=== PATIENT | male | born 1965 | race Caucasian/White ===

== ENCOUNTER 2021-09-01 09:52 | Emergency (ER) | payer BC, SELFPAY ==
[2021-09-01 09:55] VITALS: BP 121/74; PULSE 83; RESP 18; TEMP 36.4; O2SAT 100
--- NOTE | 2021-09-01 10:01 | ED.URI ---
HPI - URI/Sore Throat General Chief Complaint: Upper Respiratory Infection Stated Complaint: Cough,Body Aches Time Seen by Provider: 09/01/21 10:10 Source: patient, family, RN notes reviewed and old records reviewed Mode of arrival: ambulatory Limitations: no limitations History of Present Illness HPI Narrative: 56-year-old male presents to the [facility] with complaints of continued fatigue, cough and body aches for over a week, About 10 days. States last week he just really was not feeling well, lasted 3-4 days. States that he is feeling better but still having mild sx. Has a history of COPD and has had some shortness of breath. Denies fevers. Denies chest pain or abdominal pain. No nausea vomiting or diarrhea. Patient states today he is feeling a little better. Continues to have the cough, fatigue. Patient states he is COVID vaccinated Pertinent past history: COPD Onset (ago): day(s) (10) Related Data Home Medications Medication Instructions Recorded Confirmed albuterol sulfate [Ventolin HFA] 2 inh INHALATION DIRECTED 09/01/21 09/01/21 beclomethasone dipropionate [Qvar 40 mcg INHALATION DIRECTED 09/01/21 09/01/21 RediHaler] ixekizumab [Taltz Autoinjector] 1 mg SUBCUT DIRECTED 09/01/21 09/01/21 lisinopril 20 mg PO DAILY 09/01/21 09/01/21 Allergies Allergy/AdvReac Type Severity Reaction Status Date / Time No Known Allergies Allergy Unverified 09/01/21 09:55 Review of Systems Review of Systems: All systems reviewed & are unremarkable except as noted in HPI and below Constitutional: Constitutional: Reports as per HPI, Denies chills, Reports fatigue, Denies fever(s) and Denies headache(s) Eyes: Eyes: Reports no additional eye complaints ENT: Reports as per HPI, Denies vertigo, Denies dizziness, Denies headache(s), Denies nasal congestion and Denies sore throat Cardiovascular: Cardiovascular: Reports no additional cardiovascular complaints, Denies chest pain, Denies syncope, Denies rapid heart rate and Denies dyspnea Respiratory: Respiratory: Reports as per HPI, Denies chest congestion, Reports cough, Reports dyspnea and Denies wheezing Gastrointestinal: Gastrointestinal: Reports no additional gastrointestinal complaints, Denies abdominal pain, Denies diarrhea, Denies nausea and Denies vomiting Musculoskeletal: Musculoskeletal: Reports as per HPI, Denies back pain, Reports myalgias and Denies numbness Integumentary/Breasts: Skin/Breast: Reports system reviewed and no additional complaints, except as docu Neurologic: Reports system reviewed and no additional complaints, except as documented, Denies vertigo, Denies dizziness, Denies syncope, Denies headache(s), Denies focal weakness and Denies numbness Psychiatric: Psychiatric: Reports no additional psychiatric complaints Allergic/Immunologic: Allergic/Immunologic: Reports no additional allergic/immunologic complaints and Denies wheezing PMFSH Past Medical History Medical History (Updated 09/01/21 @ 10:21 by Patsy Hastings) COPD (chronic obstructive pulmonary disease) Hypertension Surgical History Surgical History (Updated 09/01/21 @ 10:18 by Patsy Hastings) H/O cervical spine surgery Social History Social History (Updated 09/01/21 @ 10:19 by Patsy Hastings) Smoking status: Current every day smoker Comments At the time of my signature, I reviewed and agree with the nursing past medical, surgical, social, and family history. There is no relevant family history pertinent to the patient complaint. Exam Const: General: cooperative, healthy appearing, no acute distress, well developed and alert Nutritional Appearance: well nourished and obese Orientation/consciousness: patient oriented x3 Limitations: no limitations HENMT: Head: normal to inspection Ears: external ears normal, TM's normal bilaterally and EAC's normal General nose exam: Normal external nose present Mouth: Yes lip normal and Yes moist mucous membranes Throat: uvula
== END 2021-09-01 10:35 | disposition home or self-care (01) ==
PROVIDERS: Emergency Provider Nurse Practitioner; PCP Physician Assistant
DX: J44.9 Chronic obstructive pulmonary disease, unspecified (principal); R53.83 Other fatigue; I10 Essential (primary) hypertension; F17.200 Nicotine dependence, unspecified, uncomplicated
CPT/HCPCS: 99213; G0463

== ENCOUNTER 2023-08-13 08:11 | Outpatient (CLI) | payer BC, SELFPAY ==
[2023-08-13 08:44] LABS: Basophils Absolute Auto 0.1 K/mm3 (0.0-0.1); Basophils Percent Auto 0.7 % (0.2-1.2); Eosinophils Absolute Auto 0.3 K/mm3 (0-0.3); Eosinophils Percent Auto 4.2 % (0-4.4); Hematocrit 51.6 % (42.0-52.0); Hemoglobin 16.6 g/dL (14.0-18.0); Immature Granulocyte Absolute 0.02 K/mm3 (0.00-0.031); Immature Granulocyte Percent A 0.3 % (0-0.5); Lymphocytes Absolute Auto 1.61 K/mm3 (0.9-3.2); Lymphocytes Percent Auto 21.2 % (18.3-44.2); Mean Corpuscular HGB Conc 32.2 g/dl (32-36); Mean Corpuscular Hemoglobin 31.1 pg (26-34); Mean Corpuscular Volume 96.6 fl (80-100); Mean Platelet Volume 9.7 fl (7.4-10.4); Monocytes Absolute Auto 0.6 K/mm3 (0.1-0.6); Monocytes Percent Auto 7.8 % (2.6-8.5); Neutrophils Percent Auto 65.8 % (45.5-73.1); Platelet Count Result 262 k/mm3 (150-375); Red Blood Count 5.34 M/mm3 (4.6-6.20); Red Cell Distribution Width 13.7 % (11.5-14.5); White Blood Count 7.6 K/mm3 (4.5-10.0)
[2023-08-13 08:55] LABS: Alanine Aminotransferase 17 U/L (6-50); Albumin Level 4.6 g/dL (3.5-5.1); Alkaline Phosphatase 84 U/L (38-126); Anion Gap 9 mmol/L (8-16); Aspartate Amino Transferase 20 U/L (17-59); Bilirubin,Total 0.9 mg/dL (0.2-1.3); Blood Urea Nitrogen 12 mg/dL (9-20); Calcium 9.3 mg/dL (8.4-10.2); Carbon Dioxide 29 mmol/L (22-30); Chloride 102 mmol/L (98-107); Estimated Glomerular Filt Rate > 60; Glucose 115 mg/dL (65-110); Potassium 4.6 mmol/L (3.4-5.0); Sodium 140 mmol/L (137-145)
== END 2023-08-13 08:12 | disposition home or self-care (01) ==
PROVIDERS: PCP Physician Assistant
DX: Z79.899 Other long term (current) drug therapy (principal)
CPT/HCPCS: 36415; 80053; 85025

== ENCOUNTER 2024-10-02 12:30 | Emergency (ER) | payer BC, SELFPAY ==
--- NOTE | ~2024-10-02 | XR_ITS ---
EXAMINATION: [id number] DATE: 10/02/2024 13:23 INDICATION: Firm mass at the anterior right distal femur TECHNIQUE: AP and lateral views of the right knee were obtained. COMPARISON: None. FINDINGS: Bone alignment is normal. No fracture. There is mild joint space narrowing the medial compartment and tiny marginal osteophytes along the patella and trochlea consistent with mild osteoarthritis. No rig ht knee joint effusion. There is a prominent cephalad directed exostosis with cortical and medullary continuity consistent with an osteochondroma. Arises from the medial side of the medial supracondylar region and is directed more posteriorly on the lateral projection. This could account for a medial s ided palpable abnormality but is unlikely to account for an anterior mass. There is however prominent soft tissue swelling with subcutaneous edema in the prepatellar soft tissues but also extending more cephalad anterior to the distal femur where there is anterior bulging of the skin surface. No eviden t homogeneous soft tissue density mass identified. IMPRESSION: 1. Mild medial and patellofemoral compartment osteoarthritis at the right knee. 2. Prominent medial supracondylar osteochondroma projecting cephalad and posteriorly. 3. Prominent nonspecific soft tissue swelling with subcutaneous edema along the anterior knee and dis vandana thigh which could be seen with cellulitis. Reviewed, dictated and finalized at location A. FOLIO DIRECTOR IMPRESSION: 1. Mild medial and patellofemoral compartment osteoarthritis at the right knee. 2. Prominent medial supracondylar osteochondroma projecting cephalad and youth support worker iorly. 3. Prominent nonspecific soft tissue swelling with subcutaneous edema along the anterior knee and distal thigh which could be seen with cellulitis.
[2024-10-02 12:44] VITALS: BP 120/69; PULSE 101; RESP 16; TEMP 36.7; O2SAT 97
--- NOTE | 2024-10-02 13:08 | ED_ITS ---
HPI - URI/Sore Throat General Chief Complaint: Unspecified Stated Complaint: cold,lump right leg Time Seen by Provider: 10/02/24 13:08 Source: patient Mode of arrival: ambulatory Limitations: no limitations History of Present Illness HPI Narrative: 59-year-old male presents with complaint of fatigue and generalized weakness for approximately 5 days. Patient reports bump to right thigh for approximately 1 week. All systems reviewed and negative except as noted above. Related Data Home Medications ?Medication ?Instructions ?Recorded ?Confirmed ?Last Taken ?Type albuterol sulfate 90 mcg/actuation 2 inh inhalation DIRECTED 09/01/21 10/02/24 Unknown History aerosol inhaler (Ventolin HFA) beclomethasone dipropionate 40 40 mcg inhalation DIRECTED 09/01/21 10/02/24 Unknown History mcg/actuation HFA breath activated aerosol (Qvar RediHaler) lisinopril 20 mg tablet 20 mg PO DAILY 10/02/24 10/02/24 Unknown History Allergies Allergy/AdvReac Type Severity Reaction Status Date / Time No Known Allergies Allergy Unverified 10/02/24 12:37 Review of Systems Review of Systems: CONSTITUTIONAL: Denies fever, chills, or sweats. Reports generalized weakness and fatigue. EYES: Denies visual changes, redness, or discharge. ENT: Denies rhinorrhea, congestion, sore throat, or otalgia. CARDIOVASCULAR: Denies chest pain, palpitations, or edema. RESPIRATORY: Denies cough or dyspnea. GASTROINTESTINAL: Denies abdominal pain, nausea, vomiting, or diarrhea. GENITOURINARY: Denies dysuria or hematuria. SKIN: Denies rash or itching. Reports bump to right thigh. MUSCULOSKELETAL: Denies back pain, joint pain, or myalgia. NEUROLOGIC: Denies headache, numbness, or weakness. PSYCHIATRIC: Denies anxiety or depression. All other systems reviewed are negative, except as documented in HPI. [facility] Past Medical History Medical History Hypertension COPD (chronic obstructive pulmonary disease) Surgical History Surgical History H/O cervical spine surgery Social History Social History Smoking status: Current every day smoker Comments At time of signature, agree with nursing past medical, surgical, social and family history. There is no relevant family history pertinent to the presenting complaint. Exam Narrative: GENERAL: This is a well-nourished, well-developed patient, in no apparent distress. HEAD: normocephalic, atraumatic. EYES: PERRL. Sclera clear/white. Vision is grossly intact. EARS: External ears normal NOSE: External nose normal NECK: Neck supple, non-tender without lymphadenopathy, masses or thyromegaly. CARDIOVASCULAR: Regular rate and rhythm without murmurs, gallops, or rubs. RESPIRATORY: Clear to auscultation. Breath sounds equal bilaterally. No wheezes, rales, or rhonchi. SKIN: warm, Dry, intact with no suspicious lesions or rash, good texture and turgor. NEURO: awake, alert, and oriented to person, place and time. There were no obvious focal neurologic abnormalities. EXTREMITIES: No joint tenderness, effusion, or edema noted. mass/lump to anterior aspect, distal femur approx. 8x7cm with erythema and warmth Course Course Level of Care: Express Care Visit Vital Signs Vital signs: Vital Signs Temperature 36.7 C 10/02/24 12:44 Pulse Rate 101 H 10/02/24 12:44 Respiratory Rate 16 10/02/24 12:44 Blood Pressure 120/69 10/02/24 12:44 Pulse Oximetry 97 10/02/24 12:44 Oxygen Delivery Room Air 10/02/24 12:44 Temperature 36.7 C 10/02/24 12:44 Pulse Rate 101 H 10/02/24 12:44 Respiratory Rate 16 10/02/24 12:44 Blood Pressure 120/69 10/02/24 12:44 Pulse Oximetry 97 10/02/24 12:44 Oxygen Delivery Room Air 10/02/24 12:44 Reviewed MDM - URI/Sore Throat MDM Narrative Medical decision making narrative: Discussed x-ray results with patient. Will prescribe antibiotic to treat cellulitis. Recommend that patient follow-up with his primary care physician if soft tissue lump not improving after taking antibiotics. Patient is well- appearing, nontoxic. Please be advised this is a medical document. It is intended for [id number] communication. It is written in medical language and may contain unfamiliar abbreviations or verbiage. Medical documents are intended to carry relevant information, facts as evident, and the clinical opinion of the practitioner at the time of the encounter. This report may have been done utilizing a voice recognition system. Attempts have been made to correct errors. However, there may be uncorrected grammatical, spelling, and recognition errors present. The file time of this note does not necessarily represent the time of service. Imaging Data My impression: agree with radiologist Radiologist's impression: EXAMINATION: [id number] DATE: 10/02/2024 13:23 INDICATION: Firm mass at the anterior right distal femur TECHNIQUE: AP and lateral views of the right knee were obtained. COMPARISON: None. FINDINGS: Bone alignment is normal. No fracture. There is mild joint space narrowing the medial compartment and tiny marginal osteophytes along the patella and trochlea consistent with mild osteoarthritis. No right knee joint effusion. There is a prominent cephalad directed exostosis with cortical and medullary continuity consistent with an osteochondroma. Arises from the medial side of the medial supracondylar region and is directed more posteriorly on the lateral projection. This could account for a medial sided palpable abnormality but is unlikely to account for an anterior mass. There is however prominent soft tissue swelling with subcutaneous edema in the prepatellar soft tissues but also extending more cephalad anterior to the distal femur where there is anterior bulging of the skin surface. No evident homogeneous soft tissue density mass identified. IMPRESSION: 1. Mild medial and patellofemoral compartment osteoarthritis at the right knee. 2. Prominent medial supracondylar osteochondroma projecting cephalad and posteriorly. 3. Prominent nonspecific soft tissue swelling with subcutaneous edema along the anterior knee and distal thigh which could be seen with cellulitis. Discharge Plan Discharge Clinical Impression: Cellulitis of right thigh, Mass of right thigh Patient Disposition: Home, Self-Care Condition: Stable Instructions: Antibiotic Form, Cellulitis (ED) Additional Instructions: take antibiotic as prescribed until gone. Take Tylenol every 6-8 hours as needed for pain and fever. If swollen lump/mass does no resolve after taking antibiotic follow-up with your primary care physician for further evaluation. Patient Language: [place] Prescriptions: New cephalexin 500 mg capsule 500 mg PO QID 10 Days Qty: 40 0RF No Action albuterol sulfate [Ventolin HFA] 90 mcg/actuation HFA aerosol inhaler 2 inh INHALATION DIRECTED Qvar RediHaler 40 mcg/actuation HFA aerosol breath activated 40 mcg INHALATION DIRECTED lisinopril 20 mg tablet 20 mg PO DAILY Follow-up/Referrals: Nile,DEMETRIO Mix [Primary Care Provider] - Time of Disposition: 13:41
== END 2024-10-02 13:46 | disposition home or self-care (01) ==
PROVIDERS: Emergency Provider Nurse Practitioner Family; PCP Physician Assistant
DX: L03.115 Cellulitis of right lower limb (principal); R22.41 Localized swelling, mass and lump, right lower limb; F17.200 Nicotine dependence, unspecified, uncomplicated; J44.9 Chronic obstructive pulmonary disease, unspecified; I10 Essential (primary) hypertension
CPT/HCPCS: 73560; 99213; G0463

== ENCOUNTER 2024-10-15 01:17 | Day surgery (SDC) | payer BC, SELFPAY ==
[2024-10-12 15:56] VITALS: BMI 26.4
--- OUTSIDE RECORDS SUMMARY | 2024-10-15 01:21 | XMS_ITS | Patient Health Summary ---
Author Organization [facility] Address [address] [place] [address] Care Team Providers Care Personnel Records Clerk Name Role Phone Unavailable Primary Care Provider Unavailabl e Note from [facility],non-owned Affiliates and Associated Physician Practices is amultiple site organization consisting of ambulatory clinics and hospital sitesin [place], [place], [place] and [place]. This disclosure is being madepursuant to the Care Everywhere program and may not contain all information available regarding this patient. Last updated 18.[facility] Social History Tobacco Use Types Packs/Day Years Used Date Smoking Tobacco: Never Assessed Sex and Gender Information Value Date Recorded Sex Assigned at Not on file Gender Identity Not on file Sexual Orientation Not on file Procedures * DERMATOPATHOLOGY(Performed 05/09/2021) * DERMATOPATHOLOGY(Performed 04/26/2021) * DERMATOPATHOLOGY(Performed 02/02/2020) Results * DERMATOPATHOLOGY (05/09/2021 3:33 AM CDT) Only the most recent of3 resultswithin the time period is included. Case Report Dermatopathology Report Case: [id number] Authorizing Provider: Ruba Montes De Oca MD Collected: 05/09/2021 03:33 AM Ordering Location: [facility] DermPath Lab Received: 05/10/2021 06:24 AM Pathologist: Naina Crisostomo MD Specimen: Skin, right neck 1:16 PM CDT DERMATOPATHOLOGY LABORATORY Final Diagnosis Specimen A. SKIN, right neck: HEALING SKIN CHANGES AND DERMAL SCAR (L90.5) RESIDUAL BASAL CELL CARCINOMA NOT IDENTIFIED 1:16 PM CDT DERMATOPATHOLOGY LABORATORY Clinical History BCC, biopsy proven. 1:16 PM CDT DERMATOPATHOLOGY LABORATORY Gross Description Specimen A: Received is one formalin filled container labeled with the patient's name and designated right neck. The specimen consists of a non-oriented ellipse of skin measuring [id number]. The epidermal surface is unremarkable. The margin is inked green. The 12 o'clock and 6 o'clock tips are submitted in cassette 1. The remainder of the ellipse is serially sectioned and submitted in cassettes 2-3. Jar 0. 1:16 PM CDT DERMATOPATHOLOGY LABORATORY Microscopic Description Specimen A. SKIN, right neck: There is epidermal hyperplasia beneath which there are vascular proliferation, fibroblasts, and an edematous stroma. There are fibroblasts and collagen bundles oriented parallel to the skin surface. There are elongated blood vessels, some of which are oriented perpendicular to the skin surface. No basal cell carcinoma is identified. 1:16 PM CDT DERMATOPATHOLOGY LABORATORY Disclaimer An external and internal positive and negative controls are appropriate for the histochemical, immunohistochemical and immunofluorescence stain(s) in this case (if any), except where stated explicitly. The performance characteristics of the stain(s) cited in this report were developed and its performance characteristic determined by the Dermatopathology Laboratory at [facility], directed by Dr. Jonathon Joy. These tests need not be, and therefore are not, approved by the [place] Food and Drug Administration. The tests are used for clinical purposes. Billing Codes Specimen Charges Stain Charges 99203 1 1:16 PM CDT DERMATOPATHOLOGY LABORATORY Embedded Images 1:16 PM CDT DERMATOPATHOLOGY LABORATORY Pathology/Cytolo gy TISSUE SPECIMEN FROM SKIN / Unknown 05/09/2021 3:33 AM CDT 05/10/2021 6:24 AM CDT Ruba Montes De Oca MD LAB - PATHOLOGY/CYTO LOGY ORDERABLES DERMATOPATHOLOGY LABORATORY [facility] - Department of Dermatology [address] [place] [address], [facility] [phone]
--- OUTSIDE RECORDS SUMMARY | 2024-10-15 01:21 | XMS_ITS | Data Portability ---
Author Organization [facility] Address [address] [facility] [place] [address] Care Team Providers Care Handkerchief Folder Name Role Phone HANNAH DOWD Primary Care Provider Assessment No assessment recorded. Plan of Treatment Reminders Order Date Submit Date Provider Last Modified By Organization Details Last Modified Time Details Appointments None recorded. Lab CBC 2023 024 [facility], [address] [facility], [facility] [address], [place], [address], 4 11:08:50 CMP, serum or plasma 2023 024 [facility], [address] [place] [address], [place], [address], 4 11:08:48 lipid panel, serum 2023 024 [facility], [address] [place] [address] 2, [place], [address], 4 11:08:47 HbA1c (hemoglobin A1c), blood 2023 024 [facility] In-Office Order, Internal Use Only DO Not Attach Compendium DO Not Attach Compendium, Do Not Delete/merge, [id number] 4 17:00:50 CMP, serum or plasma 2021 022 [facility], [address] [facility], [facility], [place], [address], 2 06:20:38 CBC w/ auto diff 2021 [facility], [address] [facility], [facility], [place], [address], 06:20:40 lipid panel, serum 2021 [facility], [address] [facility], [facility], [place], [address], 06:20:37 Mycobacteri um tuberculosi s stimulated gamma interferon, qual, blood 2021 022 [facility], [address] [facility], [facility], [place], [address], 06:20:35 Referral gastroenter ologist referral 2023 024 [facility], [address], [place], [address], 5 12:13:02 Procedures None recorded. Surgeries None recorded. Imaging None recorded. Medication Orders albuterol sulfate 2.5 mg/3 mL (0.083 %) solution for nebulizatio n [address] [facility]2510, [address] [place], [address], 4 19:28:13 albuterol sulfate HFA 90 mcg/actuati on aerosol inhaler [address] [facility]2510, [address] [place], [address], 4 19:28:15 Qvar RediHaler 40 mcg/actuati on HFA breath activated aerosol [address] [facility]2510, [address] [place], [address], 4 19:28:14 albuterol sulfate 2.5 mg/3 mL (0.083 %) solution for nebulizatio n 2022 023 [facility] [address] [place], [address], 18:18:35 triamcinolo ne acetonide 0.5 % topical cream 2022 023 [facility] [address] [place], [address], 18:21:35 albuterol sulfate HFA 90 mcg/actuati on aerosol inhaler 2022 023 [facility] [address] [place], [address], 18:18:35 diclofenac sodium 75 mg tablet,zev yed release [facility]22 [facility] [address] [place], [address], 17:44:17 diclofenac 1 % topical gel 2021 022 [facility] [address] [place], [address], 17:27:24 Patient TargetsNo targets recorded. Patient Instructions Encounter Date Encounter Id Patient Instructions Last Modified By Organization Details Last Modified Time 11/28/2021 [id number] body mass index: care instructions jnanney Not available 11/28/2021 17:30:07 learning about healthy weight jnanney Not available 11/28/2021 17:30:07 05/22/2022 [id number] psoriasis: care instructions jnanney Not available 05/22/2022 12:00:17 05/13/2023 [id number] A healthy lifestyle: care instructions jnanney Not available 05/13/2023 18:17:18 learning about high blood pressure jnanney Not available 05/13/2023 18:17:18 12/30/2023 [id number] A healthy lifestyle: care instructions jnanney Not available 12/30/2023 19:28:41 chronic obstructive pulmonary disease (COPD): care instructions jnanney Not available 12/30/2023 19:28:11 learning about copd and how to prevent lung infections jnanney Not available 12/30/2023 19:28:11 08/05/2024 [id number] A healthy lifestyle: care instructions anney Not available 08/05/2024 16:43:23 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 Not Available [facility] ([facility]) [address] [facility], [place], [address], 05/25/2022 06:20:35 05/22/2005/23/2022 QUANT IFERO N-TB GOLD PLUS quantiferon criteria Commen t Quant iFERO N-TB Gold Plus is a quali tativ e indir ect test for M tuber culos is infec tion (incl uding disea se) and is inten ded for use in conju nctio n with risk asses sment , radio graph y, and other medic al and diagn ostic evalu ation s. The Quant iFERO N-TB Gold Plus resul t is deter mined by subtr actin g the Nil value from eithe r TB antig en (Ag) value . The Mitog en tube serve s as a contr ol for the test. Not Available [facility] ([facility]) [address] [facility], [place], [address], 05/25/2022 06:20:35 05/22/20 22 05/24/2022 QUANT IFERO N-TB GOLD PLUS quantiferon- TB gold plus Negati ve negati ve No respo nse to M tuber culos is antig ens detec fouzia. Infec tion with M tuber culos is is unlik candice, but high risk indiv idual s shoul d be consi dered for addit ional testi ng (ATS/ IDSA/ CDC Clini chanel Pract ice Guide lines , 2017) . The refer ence range is an Antig en minus Nil resul t of <0.35 IU/mL . Chemi lumin escen ce immun oassa y metho dolog y Not Available [facility] ([facility]) [address] [place], [address], 05/25/2022 06:20:35 05/22/20 22 05/24/2022 QUANT IFERO N-TB GOLD PLUS quantiferon TB1 Ag value 0.04 IU/mL Not Available [facility] ([facility]) [address] [place], [address], 05/25/2022 06:20:35 05/22/20 22 05/24/2022 QUANT IFERO N-TB GOLD PLUS quantiferon TB2 Ag value 0.05 IU/mL Not Available [facility] ([facility]) [address] [place], [address], 05/25/2022 06:20:35 05/22/20 22 05/24/2022 QUANT IFERO N-TB GOLD PLUS quantiferon nil value 0.04 IU/mL Not Available [facility] ([facility]) [address] [place], [address], 05/25/2022 06:20:35 05/22/20 22 05/24/2022 QUANT IFERO N-TB GOLD PLUS quantiferon mitogen value >10.00 IU/mL Not Available [facility] ([facility]) [address] [place], [address], 05/25/2022 06:20:35 05/22/20 22 05/23/2022 LIPID PANEL cholesterol, total 178 mg/dL 100-19 9 Not Available [facility] ([facility]) [address] [place], [address], 05/25/2022 06:20:36 05/22/20 22 05/23/2022 LIPID PANEL triglyceride s 120 mg/dL 0-149 Not Available [facility] ([facility]) [address] [place], [address], 05/25/2022 06:20:36 05/22/20 22 05/23/2022 LIPID PANEL HDL cholesterol 31 mg/dL >39 below low normal Not Available [facility] ([facility]) [address] [place], [address], 05/25/2022 06:20:36 05/22/20 22 05/23/2022 LIPID PANEL VLDL cholesterol chanel 22 mg/dL 5-40 Not Available [facility] ([facility]) [address] [facility], [place], [address], 05/25/2022 06:20:36 05/22/20 22 05/23/2022 LIPID PANEL LDL chol calc ([facility]) 125 mg/dL 0-99 above high normal Not Available [facility] ([facility]) [address] [place], [address], 05/25/2022 06:20:36 05/22/20 22 05/23/2022 COMP. METAB OLIC PANEL (14) glucose 122 mg/dL 70-99 above high normal Ple ase note refer ence inter helio kelvin e Not Available [facility] ([facility]) [address] [place], [address], 05/25/2022 06:20:38 05/22/20 22 05/23/2022 COMP. METAB OLIC PANEL (14) BUN 17 mg/dL 6-24 Not Available [facility] ([facility]) [address] [place], [address], 05/25/2022 06:20:38 05/22/20 22 05/23/2022 COMP. METAB OLIC PANEL (14) creatinine 0.86 mg/dL 0.76-1 .27 Not Available [facility] ([facility]) [address] [facility], [place], [address], 05/25/2022 06:20:38 05/22/20 22 05/23/2022 COMP. METAB OLIC PANEL (14) eGFR 100 mL/mi n/1.7 3 >59 Not Available [facility] ([facility]) [address] [facility], [place], [address], 05/25/2022 06:20:38 05/22/20 22 05/23/2022 COMP. METAB OLIC PANEL (14) BUN/creatini ne ratio 20 9-20 Not Available [facility] ([facility]) [address] [facility], [place], [address], 05/25/2022 06:20:38 05/22/20 22 05/23/2022 COMP. METAB OLIC PANEL (14) sodium 140 mmol/ L 134-14 4 Not Available [facility] ([facility]) [address] [facility], [place], [address], 05/25/2022 06:20:38 05/22/20 22 05/23/2022 COMP. METAB OLIC PANEL (14) potassium 4.5 mmol/ L 3.5-5. 2 Not Available [facility] ([facility]) [address] [facility], [place], [address], 05/25/2022 06:20:38 05/22/20 22 05/23/2022 COMP. METAB OLIC PANEL (14) chloride 103 mmol/ L 96-106 Not Available [facility] ([facility]) [address] [facility], [place], [address], 05/25/2022 06:20:38 05/22/20 22 05/23/2022 COMP. METAB OLIC PANEL (14) carbon dioxide, total 24 mmol/ L 20-29 Not Available [facility] ([facility]) [address] [facility], [place], [address], 05/25/2022 06:20:38 05/22/20 22 05/23/2022 COMP. METAB OLIC PANEL (14) calcium 9.5 mg/dL 8.7-10 .2 Not Available [facility] ([facility]) [address] [facility], [place], [address], 05/25/2022 06:20:38 05/22/20 22 05/23/2022 COMP. METAB OLIC PANEL (14) protein, total 6.9 g/dL 6.0-8. 5 Not Available [facility] ([facility]) [address] [facility], [place], [address], 05/25/2022 06:20:38 05/22/20 22 05/23/2022 COMP. METAB OLIC PANEL (14) albumin 4.5 g/dL 3.8-4. 9 Not Available [facility] ([facility]) [address] [facility], [place], [address], 05/25/2022 06:20:38 05/22/20 22 05/23/2022 COMP. METAB OLIC PANEL (14) globulin, total 2.4 g/dL 1.5-4. 5 Not Available [facility] ([facility]) [address] [facility], [place], [address], 05/25/2022 06:20:38 05/22/20 22 05/23/2022 COMP. METAB OLIC PANEL (14) A/G ratio 1.9 1.2-2. 2 Not Available [facility] ([facility]) [address] [place], [address], 05/25/2022 06:20:38 05/22/20 22 05/23/2022 COMP. METAB OLIC PANEL (14) bilirubin, total 0.4 mg/dL 0.0-1. 2 Not Available [facility] ([facility]) [address] [place], [address], 05/25/2022 06:20:38 05/22/20 22 05/23/2022 COMP. METAB OLIC PANEL (14) alkaline phosphatase 96 IU/L 44-121 Not Available [facility] ([facility]) [address] [facility], [place], [address], 05/25/2022 06:20:38 05/22/20 22 05/23/2022 COMP. METAB OLIC PANEL (14) AST (SGOT) 15 IU/L 0-40 Not Available [facility] ([facility]) [address] [facility], [place], [address], 05/25/2022 06:20:38 05/22/2005/23/2022 COMP. METAB OLIC PANEL (14) ALT (SGPT) 13 IU/L 0-44 Not Available [facility] ([facility]) [address] [facility], [place], [address], 05/25/2022 06:20:38 05/22/20 22 05/23/2022 CBC WITH DIFFE RENTI AL/PL ATELE T WBC 7.9 x10e3 /uL 3.4-10 .8 Not Available [facility] ([facility]) [address] [facility], [place], [address], 05/25/2022 06:20:40 05/22/20 22 05/23/2022 CBC WITH DIFFE RENTI AL/PL ATELE T RBC 4.95 x10e6 /uL 4.14-5 .80 Not Available [facility] ([facility]) [address] [facility], [place], [address], 05/25/2022 06:20:40 05/22/2005/23/2022 CBC WITH DIFFE RENTI AL/PL ATELE T hemoglobin 15.4 g/dL 13.0-1 7.7 Not Available [facility] ([facility]) [address] [facility], [place], [address], 05/25/2022 06:20:40 05/22/20 05/23/2022 CBC WITH DIFFE RENTI AL/PL ATELE T hematocrit 45.9 % 37.5-5 1.0 Not Available [facility] ([facility]) [address] [facility], [place], [address], 05/25/2022 06:20:40 05/22/20 22 05/23/2022 CBC WITH DIFFE RENTI AL/PL ATELE T MCV 93 fL 79-97 Not Available [facility] ([facility]) [address] [facility], [place], [address], 05/25/2022 06:20:40 05/22/2005/23/2022 CBC WITH DIFFE RENTI AL/PL ATELE T MCH 31.1 pg 26.6-3 3.0 Not Available [facility] ([facility]) [address] [facility], [place], [address], 05/25/2022 06:20:40 05/22/20 22 05/23/2022 CBC WITH DIFFE RENTI AL/PL ATELE T MCHC 33.6 g/dL 31.5-3 5.7 Not Available [facility] ([facility]) [address] [facility], [place], [address], 05/25/2022 06:20:40 05/22/20 22 05/23/2022 CBC WITH DIFFE RENTI AL/PL ATELE T RDW 13.1 % 11.6-1 5.4 Not Available [facility] ([facility]) [address] [facility], [place], [address], 05/25/2022 06:20:40 05/22/2005/23/2022 CBC WITH DIFFE RENTI AL/PL ATELE T platelets 258 x10e3 /uL 150-45 0 Not Available [facility] ([facility]) [address] [facility], [place], [address], 05/25/2022 06:20:40 05/22/2005/23/2022 CBC WITH DIFFE RENTI AL/PL ATELE T neutrophils 66 % notest ab. Not Available [facility] ([facility]) [address] [facility], [place], [address], 05/25/2022 06:20:40 05/22/20 22 05/23/2022 CBC WITH DIFFE RENTI AL/PL ATELE T lymphs 22 % notest ab. Not Available [facility] ([facility]) [address] [facility], [place], [address], 05/25/2022 06:20:40 05/22/20 22 05/23/2022 CBC WITH DIFFE RENTI AL/PL ATELE T monocytes 8 % notest ab. Not Available [facility] ([facility]) [address] [facility], [place], [address], 05/25/2022 06:20:40 05/22/2005/23/2022 CBC WITH DIFFE RENTI AL/PL ATELE T eos 3 % notest ab. Not Available [facility] ([facility]) [address] [facility], [place], [address], 05/25/2022 06:20:40 05/22/20 22 05/23/2022 CBC WITH DIFFE RENTI AL/PL ATELE T basos 1 % notest ab. Not Available [facility] ([facility]) [address] [facility], [place], [address], 05/25/2022 06:20:40 05/22/20 22 05/23/2022 CBC WITH DIFFE RENTI AL/PL ATELE T neutrophils (absolute) 5.2 x10e3 /uL 1.4-7. 0 Not Available [facility] ([facility]) [address] [facility], [place], [address], 05/25/2022 06:20:40 05/22/20 22 05/23/2022 CBC WITH DIFFE RENTI AL/PL ATELE T lymphs (absolute) 1.8 x10e3 /uL 0.7-3. 1 Not Available [facility] ([facility]) [address] [facility], [place], [address], 05/25/2022 06:20:40 05/22/20 22 05/23/2022 CBC WITH DIFFE RENTI AL/PL ATELE T monocytes(ab solute) 0.6 x10e3 /uL 0.1-0. 9 Not Available [facility] ([facility]) [address] [facility], [place], [address], 05/25/2022 06:20:40 05/22/2005/23/2022 CBC WITH DIFFE RENTI AL/PL ATELE T eos (absolute) 0.3 x10e3 /uL 0.0-0. 4 Not Available [facility] ([facility]) [address] [facility], [place], [address], 05/25/2022 06:20:40 05/22/20 22 05/23/2022 CBC WITH DIFFE RENTI AL/PL ATELE T baso (absolute) 0.1 x10e3 /uL 0.0-0. 2 Not Available [facility] ([facility]) [address] [facility], [place], [address], 05/25/2022 06:20:40 05/22/20 22 05/23/2022 CBC WITH DIFFE RENTI AL/PL ATELE T immature granulocytes 0 % notest ab. Not Available [facility] ([facility]) [address] [facility], [place], [address], 05/25/2022 06:20:40 05/22/20 22 05/23/2022 CBC WITH DIFFE RENTI AL/PL ATELE T immature grans (abs) 0.0 x10e3 /uL 0.0-0. 1 Not Available [facility] ([facility]) [address] [facility], [place], [address], 05/25/2022 06:20:40 05/22/2005/23/2022 CARDI OVASC ULAR REPOR T interpretati on Note Suppl ement al repor t is avail able. Not Available [facility] ([facility]) [address] [facility], [place], [address], 05/25/2022 06:20:39 05/22/20 22 05/23/2022 CARDI OVASC ULAR REPOR T pdf . Not Available [facility] ([facility]) [address] [facility], [place], [address], 05/25/2022 06:20:39 08/05/20 24 08/07/2024 LIPID PANEL cholesterol, total 189 mg/dL 100-19 9 Not Available [address], [address], 08/07/2024 11:08:47 08/05/2008/07/2024 LIPID PANEL triglyceride s 167 mg/dL 0-149 above high normal Not Available [address], [address], 08/07/2024 11:08:47 08/05/20 24 08/07/2024 LIPID PANEL HDL cholesterol 34 mg/dL >39 below low normal Not Available [address], [address], 08/07/2024 11:08:47 08/05/20 24 08/07/2024 LIPID PANEL VLDL cholesterol chanel 30 mg/dL 5-40 Not Available [address], [address], 08/07/2024 11:08:47 08/05/20 24 08/07/2024 LIPID PANEL LDL chol calc ([facility]) 125 mg/dL 0-99 above high normal Not Available [address], [address], 08/07/2024 11:08:47 08/05/20 24 08/07/2024 COMP. METAB OLIC PANEL (14) glucose 100 mg/dL 70-99 above high normal Not Available [address], [address], 08/07/2024 11:08:48 08/05/20 24 08/07/2024 COMP. METAB OLIC PANEL (14) BUN 12 mg/dL 8-27 Not Available [address], [address], 08/07/2024 11:08:48 08/05/20 24 08/07/2024 COMP. METAB OLIC PANEL (14) creatinine 0.78 mg/dL 0.76-1 .27 Not Available [address], [address], 08/07/2024 11:08:48 08/05/20 24 08/07/2024 COMP. METAB OLIC PANEL (14) eGFR 101 mL/mi n/1.7 3 >59 Not Available [address], [address], 08/07/2024 11:08:48 08/05/20 24 08/07/2024 COMP. METAB OLIC PANEL (14) BUN/creatini ne ratio 15 10-24 Not Available [address], [address], 08/07/2024 11:08:48 08/05/20 24 08/07/2024 COMP. METAB OLIC PANEL (14) sodium 141 mmol/ L 134-14 4 Not Available [address], [address], 08/07/2024 11:08:48 08/05/20 24 08/07/2024 COMP. METAB OLIC PANEL (14) potassium 4.1 mmol/ L 3.5-5. 2 Not Available [address], [address], 08/07/2024 11:08:48 08/05/20 24 08/07/2024 COMP. METAB OLIC PANEL (14) chloride 101 mmol/ L 96-106 Not Available [address], [address], 08/07/2024 11:08:48 08/05/20 24 08/07/2024 COMP. METAB OLIC PANEL (14) carbon dioxide, total 25 mmol/ L 20-29 Not Available [address], [address], 08/07/2024 11:08:48 08/05/20 24 08/07/2024 COMP. METAB OLIC PANEL (14) calcium 9.6 mg/dL 8.6-10 .2 Not Available [address], [address], 08/07/2024 11:08:48 08/05/20 24 08/07/2024 COMP. METAB OLIC PANEL (14) protein, total 6.8 g/dL 6.0-8. 5 Not Available [address], [address], 08/07/2024 11:08:48 08/05/20 24 08/07/2024 COMP. METAB OLIC PANEL (14) albumin 4.4 g/dL 3.9-4. 9 Not Available [address], [address], 08/07/2024 11:08:48 08/05/20 24 08/07/2024 COMP. METAB OLIC PANEL (14) globulin, total 2.4 g/dL 1.5-4. 5 Not Available [address], [address], 08/07/2024 11:08:48 08/05/20 24 08/07/2024 COMP. METAB OLIC PANEL (14) bilirubin, total 0.4 mg/dL 0.0-1. 2 Not Available [address], [address], 08/07/2024 11:08:48 08/05/20 24 08/07/2024 COMP. METAB OLIC PANEL (14) alkaline phosphatase 89 IU/L 44-121 Not Available [address], [address], 08/07/2024 11:08:48 08/05/20 24 08/07/2024 COMP. METAB OLIC PANEL (14) AST (SGOT) 10 IU/L 0-40 Not Available [address], [address], 08/07/2024 11:08:48 08/05/20 24 08/07/2024 COMP. METAB OLIC PANEL (14) ALT (SGPT) 11 IU/L 0-44 Not Available [address], [address], 08/07/2024 11:08:48 08/05/20 24 08/07/2024 CARDI OVASC ULAR REPOR T interpretati on Note Suppl ement al repor t is avail able. Not Available [address], [address], 08/07/2024 11:08:49 08/05/20 24 08/07/2024 CARDI OVASC ULAR REPOR T pdf . Not Available [address], [address], 08/07/2024 11:08:49 08/05/20 24 08/07/2024 CBC, PLATE LET, NO DIFFE RENTI AL WBC 8.9 x10e3 /uL 3.4-10 .8 Not Available [facility] & [address], [address], 08/07/2024 11:08:50 08/05/20 24 08/07/2024 CBC, PLATE LET, NO DIFFE RENTI AL RBC 5.16 x10e6 /uL 4.14-5 .80 Not Available [address], [address], 08/07/2024 11:08:50 08/05/20 24 08/07/2024 CBC, PLATE LET, NO DIFFE RENTI AL hemoglobin 15.9 g/dL 13.0-1 7.7 Not Available [address], [address], 08/07/2024 11:08:50 08/05/20 24 08/07/2024 CBC, PLATE LET, NO DIFFE RENTI AL hematocrit 48.5 % 37.5-5 1.0 Not Available [address], [address], 08/07/2024 11:08:50 08/05/20 24 08/07/2024 CBC, PLATE LET, NO DIFFE RENTI AL MCV 94 fL 79-[address] [facility] & [address], [address], 08/07/2024 11:08:50 08/05/20 24 08/07/2024 CBC, PLATE LET, NO DIFFE RENTI AL MCH 30.8 pg 26.6-3 3.0 Not Available [facility] & [address], [address], 08/07/2024 11:08:50 08/05/20 24 08/07/2024 CBC, PLATE LET, NO DIFFE RENTI AL MCHC 32.8 g/dL 31.5-3 5.7 Not Available [facility] & [address], [address], 08/07/2024 11:08:50 08/05/20 24 08/07/2024 CBC, PLATE LET, NO DIFFE KIRK AL RDW 12.8 % 11.6-1 5.4 Not Available [facility] [address] [place], [address], 08/07/2024 11:08:50 08/05/20 24 08/07/2024 CBC, PLATE LET, NO DIFFE KATERINATI AL platelets 264 x10e3 /uL 150-45 0 Not Available [address], [address], 08/07/2024 11:08:50 08/05/20 24 08/05/2024 HbA1c (hemo globi n A1c), blood HbA1c 5.9 Not Available In-Office Order Internal Use Only DO Not Attach Compendium DO Not Attach Compendium, Do Not Delete/merge, [id number] 08/05/2024 16:47:48 10/02/19 25 10/02/2024 XR, knee No observ ation record ed. [address] [place] [address], [address], 10/04/2024 08:57:05 Result Notes None recorded. Problems No Known Problems Procedures Surgical History None recorded. Imaging Results Imaging Date Name Status LastModified by Organiz ation Details LastModified Time 10/02/2024 XR, knee completed [address], [address], 10/04/2024 08:57:05 Procedure Notes None recorded. Medical Equipment None Reported. Allergies No known drug allergies Medications Name Sig Start Date Stop Date Status Note LastModified by Organization Details LastModified Time Qvar 80 mcg/actuati on Metered Aerosol oral inhaler Inhale 2 puffs twice a day by inhalatio n route for 30 days. 01/26 completed Not Available Not Available Not Available prednisone 10 mg tablet 01/26 completed Not Available Not Available Not Available albuterol sulfate 2.5 mg/3 mL (0.083 %) solution for nebulizatio n Inhale 3 mL 4 times a day by nebulizat ion route as needed for 30 days. 2023 active Not Available Not Available Not Avlee ann martinez triamcinolo ne acetonide 0.5 % topical cream APPLY THIN COAT TO AFFECTED AREA TWICE A DAY active Not Available Not Available No t Available azithromyci n 250 mg tablet TAKE 2 TABLETS BY MOUTH TODAY, THEN TAKE 1 TABLET DAILY FOR 4 DAYS 09/19 completed Not Available Not Available Not Available fluconazole 150 mg tablet 08/12 completed Not Available Not Available Not Available hydrocodone 5 mg-acetamin ophen 325 mg tablet 08/12 completed Not Available Not Available Not Available lisinopril 20 mg tablet TAKE 1 TABLET BY MOUTH EVERY DAY active Not Available Not Available No t Available prednisone 20 mg tablet TAKE 2 TABLETS BY MOUTH FOR 3 DAYS, THEN TAKE 1 TABLET BY MOUTH FOR 3 DAYS 09/19 completed Not Available Not Available Not Available clobetasol 0.05 % topical cream APPLY TWICE A DAY TO KNEES AND ELBOWS 05/13 completed Not Available Not Available Not Available doxycycline monohydrate 100 mg capsule TAKE 1 CAPSULE BY MOUTH TWICE A DAY 09/19 completed Not Available Not Available Not Available tacrolimus 0.1 % topical ointment 08/12 completed Not Available Not Available Not Available triamcinolo ne acetonide 0.1 % topical ointment APPLY TO AFFECTED AREA ON THE BACK TWICE A DAY NEEDED 09/19 completed Not Available Not Available Not Available clobetasol 0.05 % topical foam APPLY TWICE A DAY TO SCALP 05/13 completed Not Available Not Available Not Available diclofenac sodium 75 mg tablet,zev yed release TAKE 1 TABLET BY MOUTH TWICE A DAY NEEDED FOR 90 DAYS...PA TIENT NEEDS APPT BEFORE NEXT REFILL 05/13 completed Not Available Not Available Not Available mupirocin 2 % topical ointment 08/12 completed Not Available Not Available Not Available albuterol sulfate HFA 90 mcg/actuati on aerosol inhaler INHALE 2 PUFFS BY MOUTH EVERY 4 HOURS active Not Available Not Available No t Available amoxicillin 875 mg-potassiu m clavulanate 125 mg tablet 08/12 completed Not Available Not Available Not Available Humira Pen 40 mg/0.8 mL subcutaneou s kit 01/26 completed Not Available Not Available Not Available diclofenac 1 % topical gel APPLY 2 GRAMS TO THE AFFECTED AREA(S) BY TOPICAL ROUTE 4 TIMES PER DAY active Not Available Not Available No t Available Taltz Autoinjecto r 80 mg/mL subcutaneou s Inject 1 mL every 4 weeks by subcutane ous route. 05/13 completed Not Available Not Available Not Available Qvar RediHaler 80 mcg/actuati on HFA breath activated aerosol TAKE 2 PUFFS BY MOUTH TWICE A DAY 01/26 completed Not Available Not Available Not Available Qvar RediHaler 40 mcg/actuati on HFA breath activated aerosol INHALE 1 PUFF BY MOUTHT TWICE DAILY active Not Available Not Available No t Available Vitals Date Recorded Body height Body mass index (BMI) Body weight Body temperature Oxygen saturation Oxygen saturation in Arterial blood by Pulse oximetry Heart rate Systolic blood pressure Diastolic blood pressure Provider Name and Address Organization Details Last Updated DateTime 2 182.88 cm 30.8 kg/m2 843228. 47 g 98 [degF] 97 % 97 % 83 /min 120 mm[Hg] 72 mm[Hg] Carlee hardwick [place] - [facility] 2 16:44:45 Date Recorded Body weight Body mass index (BMI) Body height Respiratory rate Heart rate Oxygen saturation Oxygen saturation in Arterial blood by Pulse oximetry Systolic blood pressure Diastolic blood pressure Provider Name and Address Organization Details Last Updated DateTime 3 98855.3 6 g 29.2 kg/m2 182.88 cm 18 /min 70 /min 96 % 96 % 174 mm[Hg] 74 mm[Hg] Padmini San [place] - [facility] 3 17:46:29 Date Recorded Body height Body mass index (BMI) Body weight Oxygen saturation Oxygen saturation in Arterial blood by Pulse oximetry Heart rate Respiratory rate Body temperature Systolic blood pressure Diastolic blood pressure Provider Name and Address Organization Details Last Updated DateTime 4 182.88 cm 29.7 kg/m2 60657.7 3 g 96 % 96 % 74 /min 16 /min 98.1 [degF] 156 mm[Hg] 75 mm[Hg] Lori English MA [facility] 4 18:57:23 Date Recorded Body height Body mass index (BMI) Body weight Oxygen saturation Oxygen saturation in Arterial blood by Pulse oximetry Heart rate Systolic blood pressure Diastolic blood pressure Provider Name and Address Organization Details Last Updated DateTime 4 182.88 cm 27.1 kg/m2 19429.4 7 g 97 % 97 % 74 /min 149 mm[Hg] 78 mm[Hg] Padmini San [place] - [facility] 4 16:37:42 Social History Question Answer Notes LastModified by Organizat ion Details LastModified Time Tobacco Smoking Status Current Every Day Smoker Gianna Mcginnis MA [facility], [place] - [facility] 09/18/2017 16:09:20 What Is Your Level Of Alcohol Consumption? Occasional Information not available 01/26/2021 What Is Your Level Of Caffeine Consumption? Moderate Information not available 07/27/2020 How Much Tobacco Do You Chew? None Information not available 07/27/2020 In The 14 Days Before Symptom Onset, Have You Had Close Contact With A Laboratory-confir med COVID-19 While That Case Was Ill? No Information not available 01/26/2021 In The 14 Days Before Symptom Onset, Have You Had Close Contact With A Person Who Is Under Investigation For COVID-19 While That Person Was Ill? No Information not available 01/26/2021 Have You Been To An Area Known To Be High Risk For COVID-19? No Information not available 01/26/2021 Are You Currently Employed? Yes Information not available 09/19/2021 What Type Of Diet Are You Following? REGULAR Information not available 07/27/2020 Which Illicit Or Recreational Drugs Have You Used? None Information not available 07/27/2020 Do You Or Have You Ever Used E-cigarettes Or Vape? 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 08/05/2024 Information not available 08/05/2024 What Is Your Relationship Status? Information not available 01/26/2021 Do You Have Smoke And Carbon Monoxide Detectors In Your Home? Yes Information not available 01/26/2021 Are You Passively Exposed To Smoke? Yes Information no t available 01/26/2021 Do You Or Have You Ever Used Smokeless Tobacco? Never Used Smokeless Tobacco Information not available 07/27/2020 How Much Tobacco Do You Smoke? 1 PPD Information not available 09/18/2017 General Stress Level Medium Information not available 07/27/2020 Do You Feel Stressed (tense, Restless, Nervous, Or Anxious, Or Unable To Sleep At Night)? [id number] Information not available 01/26/2021 Do You Use Any Illicit Or Recreational Drugs? No Information not available 01/26/2021 Has Tobacco Cessation Counseling Been Provided? Yes Information not available 01/26/2021 On What Date Was Tobacco Cessation Counseling Provided? 08/05/2024 Information not available 08/05/2024 How Many Years Have You Smoked Tobacco? 40 Information not available 09/18/2017 Do You Or Have You Ever Used Any Other Forms Of Tobacco Or Nicotine? No Information not available 01/26/2021 Sex: Male Functional Status Question Answer Note LastModified by Organization D etails LastModified Time Are you able to care for yourself? Yes Information n ot available 01/26/2021 What is your exercise level? None [email or web address] Information not available 12/30/2023 Mental Status None recorded. Family History Nothing Reported. Medical History Condition Response Coronary Artery Disease N Other N Atrial Fibrillation N High Blood Pressure N Thyroid Problems N Kidney or Bladder Problems N Depression N COPD N Blood Clots N GI Problems N Skin Problems N Anemia N Heart Attack (IA) N Diabetes N Anxiety Disorder N Muscle, Joint, or Bone Problems N Seizures/Epilepsy N Acid Reflux (GERD) N Cancer N Stroke N Allergies N Asthma N High Cholesterol N Hepatitis N Liver Disease N Headaches N Osteoporosis N Heart Failure N Immunizations Vaccine Type Date Status Note Provider Nam e and Address Organization Details Recorded Time COVID-19 vaccine, vector-nr, rS-Ad26, PF, 0.5 mL 06/24/2021 completed Lisa Keyes MA [place], [place] - [facility] 05/13/2023 09:59:08 Past Encounters Encounter ID Performer Location Encounter Start Date Encounter Closed Date Diagnosis/Indication Diagnosis SNOMED-CT Code Diagnosis ICD10 Code Diagnosis Note [id number] Hannah Dowd PA-C [facility] [address] [place] [address] 09/18/2017 15:53:43 09/18/2017 17:52:15 Essential hypertension 96644551 I10 Screening for malignant neoplasm of colon 301491484 Z12.11 Chronic ob structive pulmonary disease 66540057 J44.9 [id number] Hannah Dowd PA-C [facility] [address] [place] [address] 05/13/2018 16:14:11 05/13/2018 17:03:51 Moderate chronic obstructive pulmonary disease 232082088 J44.9 [id number] Gianna Mcginnis MA [facility] [address] [place] [address] 08/12/2018 15:05:26 08/12/2018 16:16:32 Atypical angina 496385265 I20.8 Acute bron chitis with bronchospasm 90569939 J20.9 Essential hypertension 96824486 I10 [id number] Hannah Dowd PA-C [facility] [address] [place] [address] 06/07/2019 15:03:08 06/08/2019 14:33:51 Essential hypertension 99603339 I10 Mild chron ic obstructive pulmonary disease 137626839 J41.0 Screening for malignant neoplasm of prostate 242432646 Z12.5 [id number] TONIO [facility] [address] [place] [address] 10/13/2019 16:16:34 10/13/2019 17:23:35 Mild chronic obstructive pulmonary disease 392278832 J41.0 [id number] Hannah Dowd PA-C [facility] [address] [place] [address] 10/20/2019 18:50:59 10/27/2019 14:12:51 Tobacco dependence syndrome 99281634 F17.488 [id number] Hannah Dowd PA-C [facility] [address] [place] [address] 07/27/2020 09:51:47 07/27/2020 13:27:07 Hypertriglyceridemia 289497254 E78.2 Bilateral tinnitus 72929 64453 102 H93.13 Moderate c hronic obstructive pulmonary disease 327608489 J41.0 Essential hypertension 14956453 I10 [id number] Hannah Dowd PA-C [facility] [address] [place] [address] 01/26/2021 15:29:53 01/26/2021 16:23:24 Acute bronchitis with bronchospasm 56614784 J20.8 Chronic ob structive pulmonary disease 11941686 J44.9 Essential hypertension 33788985 I10 [id number] Lisa Keyes MA [facility] [address] [place] [address] 02/23/2021 12:14:41 02/23/2021 13:16:49 Long-term current use of immunosuppressive drug 865652235 Z79.269 [id number] Hannah Dowd PA-C [facility] [address] [place] [address] 09/19/2021 17:26:38 09/19/2021 18:38:02 Tobacco dependence syndrome 85935282 F17.218 Chronic ob structive pulmonary disease 46103966 J44.9 Acute bron chitis with bronchospasm 73959400 J20.8 [id number] Hannah Dowd PA-C [facility] [address] [place] [address] 11/28/2021 16:25:53 11/28/2021 17:34:03 Pain in right hand 4597970561 64720 M79.641 Body mass index 30+ - obesity 260298346 Z68.30 [id number] Lisa Keyes MA [facility] [address] [place] [address] 05/22/2022 11:09:31 05/22/2022 12:55:44 Psoriasis 1461791 L40.0 [id number] [facility] [address] [place] [address] 05/13/2023 17:25:42 05/19/2023 15:01:34 Essential hypertension 30577335 I10 Overweight 475393864 E66 .3 Acute bron chitis with bronchospasm 17858269 J20.8 Chronic ob structive pulmonary disease 84264221 J44.9 Plaque psoriasis 7551465 09 L40.0 [id number] Hannah Dowd PA-C [facility] [address] [place] [address] 12/30/2023 18:08:54 01/02/2024 15:55:56 Chronic obstructive pulmonary disease 82019742 J43.1 Acute bron chitis with bronchospasm 35353789 J20.8 Overweight 708135259 E66 .3 [id number] Padmini San MA [facility] [address] [place] [address] 08/05/2024 16:25:26 08/09/2024 09:24:57 Esophageal dysphagia 48703148 R13.19 Overweight 339146684 E66 .3 Health Concerns Section Related Observation LastModified by Organization Detai ls LastModified Time None Recorded Concern Status LastModified by Organization Details LastModified Time None Recorded Advance Directives Directive None Recorded Payers Encounter Date Sequence Insurance Name Policy Number Policy Bean Covered Member ID Bean Member ID Guarantor Name 11/28/2021 1 [place] [id number] Hannah Julieta [id number] Hannah Rendon 05/22/2022 1 [place] [id number] Hannah Rendon [id number] Hannah Rendon 05/13/2023 1 [place] [id number] Hannah Rendon [id number] Hannah Rendon 12/30/2023 1 [place] [id number] Hannah Rendon [id number] Hannah Rendon 08/05/2024 1 [place] [id number] Hannah Julieta [id number] Hannah Julieta Notes Date Note Type Note Provider Name and Address Organization Details Recorded Time 11/28/2021 text/html Hannah Rendon is a 56 year old male with history of psoriasis and bilateral carpel tunnel surgery who presents for unilateral joint swelling. His right wrist and the 2nd and 3rd knuckles on his right hand are swollen. The wrist has been going on a few years. The knuckles have been swelling for 6 months. His right shoulder is also painful when he is moving it and when he lays on it. This started a couple months ago. He denies a change in swelling or pain with rest or with activity. His pain is described as a pressure and is a 4/10 at most and a 2/10 currently. He wears a wrist brace which helps the wrist feel better. He only occasionally takes OTC pain relievers. They have tried to massage it which does not help. He did not notice an injury that may have happened. He is still able to perform all his daily activities. He does not think his joints have been red or hot. He denies numbness, tingling, fever, n/v, rash. Hannah Dowd PA-C Attn: Accounting, [address] [place], [address], [facility] 11/28/2021 17:30:43 05/13/2023 text/html needs inhalers filled...also hasnt taken his lisinopril in a couple months and wants to know if he should resume...see bp...also psoriatic rash.. Hannah Dowd PA-C Attn: Accounting, [address] [place], [address], [facility] 05/13/2023 18:22:12 12/30/2023 text/html needs inhalers..also left lower leg hurts constantly...walki ng relieves...raising the leg hurts..lateral calf... 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 SANDRINE [place], [place] - [facility] 08/05/2024 17:00:39
--- OUTSIDE RECORDS SUMMARY | 2024-10-15 01:21 | XMS_ITS | Encounter Summary ---
Author Organization [facility] Address [address] [place] [address] Care Team Providers Care Pharmaceutical Sales Name Role Phone Unavailable Primary Care Provider Unavailabl e Encounter Details Date Type Department Care Team (Late st Contact Info) Description 02/03/2020 Lab Requisition [facility] D[facility] Lab [address] [place] [address] Talia Gaviria DO [address] [facility] [address] [place] [address] Social History Tobacco Use Types Packs/Day Years Used Date Smoking Tobacco: Never Assessed Sex and Gender Information Value Date Recorded Sex Assigned at Not on file Gender Identity Not on file Sexual Orientation Not on file documented as of this encounter Plan of Treatment Not on file documented as of this encounter Procedures Procedure Name Priority Date/Time Associated Diagnosis Comments DERMATOPATHOLOGY Routine 02/02/2020 12:0 0 AM CDT documented in this encounter Results * DERMATOPATHOLOGY (02/02/2020 12:00 AM CDT) Case Report Dermatopathology Report Case: [id number] Authorizing Provider: Talia Gaviria DO Collected: 02/02/2020 12:00 AM Ordering Location: [facility] Lab Received: 02/03/2020 11:38 AM Pathologist: aRkesh Joy MD Specimen: Skin, left dorsal MCP 0 4:24 PM CDT DERMATOPATHOLOGY LABORATORY Final Diagnosis Specimen A. 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 The specimen consists of a shave biopsy measuring 11x8x3 mm. Jar 0. 0 4:24 PM CDT DERMATOPATHOLOGY LABORATORY Microscopic Description Specimen A. SKIN, left dorsal MCP: Sections show papillomatosis and hypergranulosis with overlying focal parakeratosis. The base of the lesion is not visualized. Additional deeper sections were obtained and reviewed. Grocott's methenamine silver (GMS) stain fails to highlight fungal elements in the available sections. 0 4:24 PM CDT DERMATOPATHOLOGY LABORATORY Disclaimer An external and internal positive and negative controls are appropriate for the histochemical, immunohistochemical and immunofluorescence stain(s) in this case (if any), except where stated explicitly. The performance characteristics of the stain(s) cited in this report were developed and its performance characteristic determined by the Dermatopathology Laboratory at [facility], directed by Dr. Jonathon Joy. These tests need not be, and therefore are not, approved by the [place] Food and Drug Administration. The tests are used for clinical purposes. Billing Codes Specimen Charges Stain Charges 69260 1 36282 1 0 4:24 PM CDT DERMATOPATHOLOGY LABORATORY Embedded Images 0 4:24 PM CDT DERMATOPATHOLOGY LABORATORY Pathology/Cytolog y TISSUE SPECIMEN FROM SKIN / Unknown 02/02/2020 02/03/2020 11:38 AM CDT Talia Gaviria DO LAB - PATHOLOGY/C YTOLOGY ORDERABLES DERMATOPATHOLOGY LABORATORY [facility] - Department of Dermatology [employer] [place] [address], [facility] [phone] documented in this encounter Visit Diagnoses Not on filedocumented in this encounter
--- OUTSIDE RECORDS SUMMARY | 2024-10-15 01:21 | XMS_ITS | Clinical Summary ---
Author Organization [facility] Address [address] [place] [address] Care Team Providers Care Operator Control Room Name Role Phone Unavailable Primary Care Provider Unavailabl e Source Comments [facility],non-owned Affiliates and Associated Physician Practices is amultiple site organization consisting of ambulatory clinics and hospital sitesin [place], [place], [place] and [place]. This disclosure is being madepursuant to the Care Everywhere program and may not contain all information available regarding this patient. Last updated 18.[facility] [employer] Social History Tobacco Use Types Packs/Day Years Used Date Smoking Tobacco: Never Assessed Sex and Gender Information Value Date Recorded Sex Assigned at Not on file Gender Identity Not on file Sexual Orientation Not on file Plan of Treatment Health Maintenance Due Date Last Done Comments COLOGUARD (AGES 45-75) - COL ON CA SCREENING 1965 COLON MONITORING 1965 COLONOSCOPY - COLON CA SCREENING 1963 CT COLONOGRAPHY - COLON CA SCREENING 1965 Colorectal Cancer Screening 1965 FIT - COLON CA SCREENING 1963 FLEX SIG - COLON CA SCREENING 1963 LIPID TESTING 1963 HIV SCREENING 1978 HEPATITIS C SCREENING 03/26/1981 DTAP/TDAP/TD VACCINES (1 - Tdap) 1982 PNEUMOCOCCAL VACCINE 50+ (1 of 1 - PCV) 2013 ZOSTER VACCINE (1 of 2) 2013 COVID-19 VACCINE ( - 2023-2 5 season) 2024 INFLUENZA VACCINE (#1) 2024 DEPRESSION SCREENING 08/11/2024 Respiratory Syncytial Virus (RSV) Vaccine Pt: or over 60 yrs (1 - 1-dose 75+ series) 2038 HEPATITIS B VACCINE Aged Out No longe r eligible based on patient's age to complete this topic HIB VACCINE Aged Out No longer eligi ble based on patient's age to complete this topic HPV VACCINE Aged Out No longer eligi ble based on patient's age to complete this topic MENINGOCOCCAL (Group B) VACCINE Aged Out No longer eligible based on patient's age to complete this topic MENINGOCOCCAL VACCINE Aged Out No osiris jessie eligible based on patient's age to complete this topic PNEUMOCOCCAL VACCINE Aged Out No long er eligible based on patient's [place] [address] Antwan Rendon Personal/Family Self 1965 [facility] [address] [address]
--- OUTSIDE RECORDS SUMMARY | 2024-10-15 01:21 | XMS_ITS | Referral Summary ---
Author Organization [facility] Address [address] [place] [address] Care Team Providers Care Campus Aide Name Role Phone Unavailable Primary Care Provider Unavailabl e Source Comments [facility],non-owned Affiliates and Associated Physician Practices is amultiple site organization consisting of ambulatory clinics and hospital sitesin [place], [place], [place] and [place]. This disclosure is being madepursuant to the Care Everywhere program and may not contain all information available regarding this patient. Last updated 18.[facility] Social History Tobacco Use Types Packs/Day Years Used Date Smoking Tobacco: Never Assessed Sex and Gender Information Value Date Recorded Sex Assigned at Not on file Gender Identity Not on file Sexual Orientation Not on file Plan of Treatment Not on file Antwan Rendon Personal/Family Self [address] [address]
--- OUTSIDE RECORDS SUMMARY | 2024-10-15 01:21 | XMS_ITS | Clinical Summary ---
Author Organization [facility] Address [address] [place] [address] Care Team Providers Care Recording Artist Name Role Phone Antwan Dowd Primary Care Provider [phone] Social History Tobacco Use Types Packs/Day Years Used Date Smoking Tobacco: Never Assessed Sex and Gender Information Value Date Recorded Sex Assigned at Not on file Legal Sex Male 4:51 PM [employer] Gender Identity Not on file Sexual Orientation Not on file Plan of Treatment Health Maintenance Due Date Last Done Comments Colorectal Cancer Screening Colonoscopy (10 Years) 1965 Annual Physical 1966 Hepatitis C 1981 DTaP, Tdap and Td Vaccines ( 1 - Tdap) 1982 Zoster Vaccines (1 of 2) 2013 COVID-19 Vaccine (2 - 2023-2 5 season) 2024 06/24/2021 Influenza Adult (#1) 2024 07/11/2014 RSV Immunization or 60+ Years (1 - 1-dose 75+ series) 2038 Meningococcal B Vaccine Aged Out No l onger eligible based on patient's age to complete this topic Meningococcal Vaccine Aged Out No osiris jessie eligible based on patient's age to complete this topic Pneumococcal Vaccine: Pediat rics (0 to 5 Years) and At-Risk Patients (6 to 64 Years) Aged Out No longer eligi ble based on patient's age to complete this topic RSV Immunizations Under 20 Months Aged Out No longer eligible based on patient's age to complete this topic Insurance GENERIC - THIRD [employer]ERT[employer] LIABILITY Care Teams Recording Artist Relationship Specialty Start Date End Date Antwan Dowd PA [address] [place] [address] PCP - General PHYSICIAN BAG LINER 09/25/22
--- OUTSIDE RECORDS SUMMARY | 2024-10-15 01:21 | XMS_ITS | Encounter Summary ---
Author Organization [employer] Address [address] [place] [address] Care Team Providers Care Director Critical Care Name Role Phone Unavailable Primary Care Provider Unavailabl e Encounter Details Date Type Department Care Team (Late st Contact Info) Description 04/10/2017 Lab Requisition [facility] Laboratory Services [address] [place] [address] [place] [address] Fabiano Hagan MD [address] [facility] [address] [place] [address] Social History Tobacco Use Types Packs/Day Years Used Date Smoking Tobacco: Never Assessed Sex and Gender Information Value Date Recorded Sex Assigned at Not on file 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 This test was developed and its performance characteristics determined by [facility] in a manner consistent with CLIA requirements. This test has not been cleared or approved by the U.S. Food and Drug Administration. ZINC PROTOPORPHYRIN 32 <100 mcg/dL 04/11/2017 11:09 PM CDT [facility] Comment: ADDITIONAL INFORMATION All measurements assume hematocrit of 42% and are made in mcg/dL per OSHA requirements. This test has been modified from the jig grinder set up operator's instructions. Its performance characteristics were determined by [facility] in a manner consistent with CLIA requirements. This test has not been cleared or approved by the U.S. Food and Drug Administration. VENOUS/CAPILLARY Venous 04/11/20 11:09 PM CDT [facility] AD[address]ESS [address] [place] [address] 04/11/2017 11:09 PM CDT [facility] 04/11/2017 11:09 PM CDT [facility] 04/11/2017 11:09 PM CDT [facility] ZIP CODE [id number] 04/11/2017 11:09 PM CDT [facility] 04/11/2017 11:09 PM CDT [facility] HOME PHONE [phone] 04/11/2017 11:09 PM CDT [facility] RACE 04/11/2017 11:09 PM CDT [facility] ETHNICITY Non 04/11/2017 11:09 PM CDT [facility] OCCUPATION n/a 04/11/2017 11:09 PM CDT [facility] EMPLOYER n/a 04/11/2017 11:09 PM CDT [facility] GUARDIAN FIRST NAME Unknown 04/11/2017 11:09 PM CDT [facility] GUARDIAN LAST NAME Unknown 2016 11:09 PM CDT [facility] PROVIDER NAME [employer] 04/11/2017 11:09 PM CDT [facility] PROVIDER ADDRESS [address], [place] [address] 04/11/2017 11:09 PM CDT [facility] 04/11/2017 11:09 PM CDT [facility] 04/11/2017 11:09 PM CDT [facility] PROVIDER ZIP CODE [id number] [phone] 11:09 PM CDT [facility] PROVIDER PHONE [phone] 04/11/20 17 11:09 PM CDT [facility] SUBMITTING LAB PHONE [phone] 04/11/2017 11:09 PM CDT [facility] Comment: Test Performed by: [place] [address] Blood Collection / Unknown 04/10/2017 2:46 PM CDT 04/10/2017 9:02 PM CDT us Fabiano Hagan MD CHEMISTRY ORDERABLES Final Result [facility] documented in this encounter Visit Diagnoses Not on filedocumented in this encounter
--- OUTSIDE RECORDS SUMMARY | 2024-10-15 01:21 | XMS_ITS | Encounter Summary ---
Author Organization [facility] Address [address] [place] [address] Care Team Providers Care Social Work Associate Name Role Phone Unavailable Primary Care Provider Unavailabl e Encounter Details Date Type Department Care Team (Late st Contact Info) Description 11/29/2015 Lab Requisition [facility] Laboratory Services [address] [place] [address] [place] [address] [facility], External Provider [address] [place] [address] Social History Tobacco Use Types Packs/Day Years Used Date Smoking Tobacco: Never Assessed Sex and Gender Information Value Date Recorded Sex Assigned at Not on file 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 ADDITIONAL INFORMATION Testing performed by [facility] [employer]. ZINC PROTOPORPHYRIN 36 <100 mcg/dL 12/04/2015 1:55 AM CDT [facility] VENOUS/CAPILLARY VENOUS 12/04/2015 1:[address] [facility] 12/04/2015 1:55 AM CDT [facility] [place] 12/04/2015 1:55 AM CDT [facility] ZIP CODE [id number] 12/04/2015 1:55 AM CDT [facility] RACE UNKNOWN/RE FUSED 12/04/2015 1:55 AM CDT [facility] Comment: Test Performed by: [place] [address] Java Architect: Ailyn Milian, Ph.D. Blood specimen (specimen) 11/29/2015 2:00 PM CDT 11/29/2015 9:33 PM CDT External Provider [facility] CHEMISTRY ORDERABLES Fin al Result [facility] documented in this encounter Visit Diagnoses Not on filedocumented in this encounter
--- OUTSIDE RECORDS SUMMARY | 2024-10-15 01:21 | XMS_ITS | Clinical Summary ---
Author Organization [facility] Address [address] [place] [address] Phone Care Team Providers Care Healthcare Financial Analyst Name Role Phone Unavailable Primary Care Provider Unavailabl e Encounters Date Type Department Care Team Description 09/02/2024 External Device Data [facility] ABSTRACTION Provider, Abstract 08/30/2024 3:07 PM HOTEL OPERATION MANAGER - 08/30/2024 11:59 PM HOTEL OPERATION MANAGER Hospital Encounter [facility] Imaging Services [address] [phone] Adriana Rose ANP Discharge Disposition: Home or Self Care from Last 3 Months Social History Tobacco Use Types Packs/Day Years Used Date Smoking Tobacco: Never Assessed Sex and Gender Information Value Date Recorded Sex Assigned at Not on file Legal Sex Male 5:49 AM HOTEL OPERATION MANAGER Gender Identity Not on file Sexual Orientation Not on file Plan of Treatment Health Maintenance Due Date Last Done Comments Pre-Diabetes and Diabetes Screening 1965 DTAP/TDAP/TD VACCINES (1 - Tdap) 1982 COLORECTAL SCREENING 2008 Colorectal Cancer Screening 2008 FIT-DNA Q 3 years 2008 FIT/FOBT Q 1 year 2008 Flex Sig/CT Colonography Q 5 years 2008 ZOSTER VACCINE (1 of 2) 2013 RSV VACCINE (60+ or ) (1 - Risk 60-74 years 1-dose series) 2023 INFLUENZA VACCINE (#1) 2024 07/11/2014 COVID-19 Vaccine (2 - 2023- season) 2024 Procedures Procedure Name Priority Date/Time Associated Diagnosis Comments XR CHEST PA OR AP 1 VW Routine 08/30/2024 3:19 PM HOTEL OPERATION MANAGER Routine general medical examination at a health care facility from Last 3 Months Results * XR CHEST PA OR AP 1 VW (08/30/2024 3:19 PM HOTEL OPERATION MANAGER) Anatomical Region Laterality Modality Chest Computed Radiogr aphy 08/30/2024 3:20 PM HOTEL OPERATION MANAGER Impressions 08/31/2024 11:49 AM HOTEL OPERATION MANAGER IMPRESSION: No acute cardiopulmonary process is identified. DICTATION LOCATION: [address] Narrative 08/31/2024 11:49 AM HOTEL OPERATION MANAGER EXAM: XR CHEST PA OR AP 1 VW DATE: 08/30/2024 3:19 PM HISTORY: Routine annual physical exam COMPARISON: 07/17/2023 FINDINGS: An AP view of the chest was submitted for evaluation. The cardiac silhouette is within normal limits. There is no evidence for an infiltrate, pleural effusion, or pneumothorax. Remote healed posterior right rib fractures are again noted. There is no acute bony abnormality. Procedure Note Adrián Patricia MD - 08/31/2024 EXAM: XR CHEST PA OR AP 1 VW DATE: 08/30/2024 3:19 PM HISTORY: Routine annual physical exam COMPARISON: 07/17/2023 FINDINGS: An AP view of the chest was submitted for evaluation. The cardiac silhouette is within normal limits. There is no evidence for an infiltrate, pleural effusion, or pneumothorax. Remote healed posterior right rib fractures are again noted. There is no acute bony abnormality. IMPRESSION: No acute cardiopulmonary process is identified. DICTATION LOCATION: [address] Adriana KONG [facility] ORDERABLES Final Result from Last 3 Months
[2024-10-15 12:33] VITALS: BP 127/60; PULSE 72; RESP 18; TEMP 36.8; O2SAT 100; BMI 25.0
[2024-10-15] MEDS: LACTATED RINGERS 1,000 ML 150 ML IV CONT (12:44)
--- NOTE | 2024-10-15 12:45 | WPDANESEPPF ---
Anes - Initial Pre Proc Eval Procedure: Operation Date: 10/15/24 13:30 Proposed Procedures p Esophagogastroduodenoscopy - Praneeth Luo MD Date/Time: 10/15/24 12:45 Surgeon: Praneeth Luo MD Pre Op Diagnosis: Dysphagia Patient Data Age: 59 Gender: M Height: 1.83 m Weight: 83.7 kg Last Vital Signs Temp 98.3 F 10/15/24 12:33 Pulse 72 10/15/24 12:33 Resp 18 10/15/24 12:33 BP 127/60 10/15/24 12:33 Pulse Ox 100 10/15/24 12:33 O2 Del Method Room Air 10/15/24 12:33 Allergies Allergy/AdvReac Type Severity Reaction Status Date / Time No Known Allergies Allergy Verified 10/15/24 12:31 Home Medications ?Medication ?Instructions ?Recorded ?Confirmed ?Type albuterol sulfate 90 mcg/actuation 2 inh inhalation DIRECTED 09/01/21 10/15/24 History aerosol inhaler (Ventolin HFA) beclomethasone dipropionate 40 40 mcg inhalation DIRECTED 09/01/21 10/15/24 History mcg/actuation HFA breath activated aerosol (Qvar RediHaler) lisinopril 20 mg tablet 20 mg PO DAILY 10/02/24 10/15/24 History Patient hx anesthesia problems: none Family hx anesthesia problems: none Results Review: All pre-operative results and documents have been reviewed as part of the pre-operative evaluation. [facility] Past Medical History Medical History Hypertension COPD (chronic obstructive pulmonary disease) Surgical History Surgical History H/O cervical spine surgery Social History Social History Smoking packs per day: 1 Smoking cigarettes per day: 20.0 Smoking status: Current every day smoker Tobacco type: cigarettes Alcohol intake: current Drinks per week: 2 Living arrangements: with family Spiritual care concerns: No Anes - Eval Final PreProcedure Day of Procedure 10/15/24 12:45 Patient weight: normal Lungs: normal air movement Airway: Mallampati scale and special considerations (Edentulous. ) Neurological: alert and oriented Last oral intake: >/= 8 hours ASA classification: II Emergent: no Anesthetic plan: proceed Anesthesia type and monitoring: general GIVS and standard monitoring Results Review: All pre-operative results and documents have been reviewed as part of the pre-operative evaluation. HTN, COPD, 1 ppd smoker, now w dysphagia. Informed Consent: The patient's anesthetic plan and its attendant risks and benefits were discussed with the patient/family/POA. Questions were solicited and answers provided to the satisfaction of the patient/family/POA.
--- NOTE | 2024-10-15 14:36 | PM.IMHP ---
H&P: HPI History of Present Illness Date/Time: 10/15/24 14:36 Chief Complaint: Dysphagia Narrative: the patient has been complaining of dysphagia exclusively to solids for the past 4 months. No problem with liquids. He smokes 1 pack of cigarettes per day and does not drink. There is no unintentional weight loss or history of heartburn. Review of Systems Review of Systems: All systems reviewed & are unremarkable except as noted in HPI and below PMFSH Past Medical History Medical History Hypertension COPD (chronic obstructive pulmonary disease) Surgical History Surgical History H/O cervical spine surgery Social History Social History Smoking packs per day: 1 Smoking cigarettes per day: 20.0 Smoking status: Current every day smoker Tobacco type: cigarettes Alcohol intake: current Drinks per week: 2 Living arrangements: with family Spiritual care concerns: No Meds Home Medications and Allergies Home Medications ?Medication ?Instructions ?Recorded ?Confirmed ?Type albuterol sulfate 90 mcg/actuation 2 inh inhalation DIRECTED 09/01/21 10/15/24 History aerosol inhaler (Ventolin HFA) beclomethasone dipropionate 40 40 mcg inhalation DIRECTED 09/01/21 10/15/24 History mcg/actuation HFA breath activated aerosol (Qvar RediHaler) lisinopril 20 mg tablet 20 mg PO DAILY 10/02/24 10/15/24 History Allergies Allergy/AdvReac Type Severity Reaction Status Date / Time No Known Allergies Allergy Verified 10/15/24 12:31 Vital Signs Vital Signs - 24 hr 10/15/24 12:33 Temperature 98.3 F Pulse Rate 72 Respiratory Rate 18 Blood Pressure 127/60 Pulse Oximetry 100 Oxygen Delivery Room Air Exam Const: General: cooperative and healthy appearing Resp: Effort & Inspection: normal respiratory effort and able to speak in complete sentences Auscultation: clear to auscultation bilaterally Cardio: Rate: regular rate Rhythm: regular rhythm GI: Inspection: normal to inspection GI Palp: No No hepatosplenomegaly present Auscultation: normal bowel sounds Rectal Exam: deferred Skin: General skin exam: normal color Psych: Appearance: grossly normal Mental Status: mental status grossly normal Assessment and Plan Assessment and plan (1) Dysphagia: Code(s): R13.10 - Dysphagia, unspecified Status: Acute Assessment and Plan: The patient is deemed a good candidate for the procedure. Consent signed. Will proceed.
[2024-10-15 14:55] VITALS: BP 132/77; PULSE 83; RESP 21; O2SAT 98
[2024-10-15 15:05] VITALS: BP 133/77; PULSE 71; RESP 21; O2SAT 98
[2024-10-15 15:15] VITALS: BP 155/83; PULSE 64; RESP 21; O2SAT 100
== END 2024-10-15 15:16 | disposition home or self-care (01) ==
PROVIDERS: PCP Physician Assistant; Referring Provider Nurse Practitioner; Visit Provider Internal Medicine Gastroenterology
PROC: 0DJ08ZZ Inspection of Upper Intestinal Tract, Via Natural or Artificial Opening Endoscopic (ICD-10-PCS; CPT 43239; principal; 2024-10-15 13:30)
DX: K29.51 Unspecified chronic gastritis with bleeding (principal); K29.80 Duodenitis without bleeding; R13.10 Dysphagia, unspecified; F17.210 Nicotine dependence, cigarettes, uncomplicated
CPT/HCPCS: 43239; 88305; J2003; J2704; J7120

== ENCOUNTER 2025-03-25 07:52 | Outpatient (CLI) | payer BC, SELFPAY ==
--- OUTSIDE RECORDS SUMMARY | 2025-03-25 07:59 | XMS_ITS | Clinical Summary ---
Author Organization [facility] Address [address] [place] [address] Care Team Providers Care Chemistry Quality Control Technician Name Role Phone Antwan Dowd Primary Care Provider [phone] Allergies No known active allergies Medications lisinopril (PRINIVIL,ZESTR IL) 20 mg tablet Take 1 tablet (20 mg total) by mouth daily Active beclomethasone (QVAR) 40 mcg/actuation inhaler Inhale 2 puffs 2 (two) times a day Rinse mouth with water after use to reduce aftertaste and incidence of candidiasis. Do not swallow. Active albuterol HFA (PROVENTIL HFA,VENTOLIN HFA) 90 mcg/actuation inhaler Inhale 2 puffs every 6 (six) hours as needed for wheezing Active Active Problems No known active problems Social History Tobacco Use Types Packs/Day Years Used Date Smoking Tobacco: Every Day Cigarettes Tobacco Cessation:Ready to Q uit: Not Asked; Counseling Given: Not Answered Sex and Gender Information Value Date Recorded Sex Assigned at Not on file Legal Sex Male 10:54 AM CDT Gender Identity Not on file Sexual Orientation Not on file Obstetrics History Last Filed Vital Signs Vital Sign Reading Time Taken Comments Blood Pressure 124/68 11/08/2024 2:32 PM CDT Pulse 58 11/08/2024 2:32 PM CDT Temperature 36.7 C (98.1 F) 12/05/2017 8:14 AM CDT Respiratory Rate 18 12/05/2017 10:1 8 AM CDT Oxygen Saturation 97% 12/05/2017 10: 18 AM CDT Inhaled Oxygen Concentration - - Weight 85.2 kg (187 lb 14.4 oz) 11/08/2024 2:32 PM CDT Height 182.9 cm (6') 11/08/2024 2:32 PM CDT Body Mass Index 25.48 11/08/2024 2:32 PM CDT Plan of Treatment Health Maintenance Due Date Last Done Comments Depression Screening 1965 Hepatitis C Screening 1963 Prostate Cancer Screening-PSA 1963 DTaP/Tdap/Td Vaccine (1 - Tdap) 1974 Hepatitis B Screening 1981 Regular Well Visit/Exam 18-64 1981 Pneumococcal vaccine <65 (1 of 2 - PCV) 1982 Zoster Vaccine (1 of 2) 2013 Covid-19 Vaccine (2 - season) 2024 Influenza Vaccine (#1) 2025 07/11/2014 Colon Cancer Screening-Colonoscopy 12/06/20272017 Colon Cancer Screening-CT Colonography Discontinued Colon Cancer Screening-DNA Stool Discontinued 12/06/19 Colon Cancer Screening-FIT Discontinued 12/05/2017 Colon Cancer Screening-Sigmoidoscopy Discontinued 11/10 Procedures Procedure Name Priority Date/Time Associated Diagnosis Comments COLONOSCOPY 12/05/2017 9:03 AM CDT from Last 3 Months or Most Recently Relevant to Health Maintenance Results * COLONOSCOPY (12/05/2017 9:03 AM CDT) Anatomical Region Laterality Modality Other Narrative Procedure Note Marci Gay MD - 12/05/2017 9:03 AM CDT [facility] Patient Name: Antwan Rendon Procedure Date: 12/05/2017 9:03 AM Date of : 1965 Admit Type: Outpatient Age: 52 Gender: Male Attending MD: Marci Gay MD [facility] ENDOSCOPY [facility]OM 2 Note Status: Finalized Patient Profile: 52 WM, he is adopted so family history is unknown.no gi complains. Procedure: Colonoscopy Indications: Screening for colorectal malignant neoplasm Referring MD: DEMETRIO Hewitt Providers: Marci Gay MD Impression: - One 4 mm polyp in the descending colon. Resectedand retrieved. - Internal hemorrhoids. Recommendation: - Await pathology results. - Repeat colonoscopy in 5 years for surveillance. - Continue present medications. Medicines: Monitored Anesthesia Care Complications: No immediate complications. Estimated Blood Loss: Estimated blood loss: none. Procedure: Pre-Anesthesia Assessment: - Prior to the procedure, a History and Physical was performed, and patient medications and allergieswere reviewed. The patient's tolerance of previous anesthesia was also reviewed. The risks and benefitsof the procedure and the sedation options and riskswere discussed with the patient. All questions were answered, and informed consent was obtained. Prior Anticoagulants: The patient has taken no previous anticoagulant or antiplatelet agents. ASA Grade Assessment: II - A patient with mild systemicdisease. After reviewing the risks and benefits, the patientwas deemed in satisfactory condition to undergo the procedure. The benefits, risks and alternatives of theprocedure and sedation were discussed and informed consent was obtained. All questions were answered. Please referto the signed informed consent document in the medical record. The scope was passed under direct vision.The Pediatric Colonoscope PCF-H190L [id number] was introduced through the anus and advanced to the the cecum, identified by appendiceal orifice andileocecal valve. The colonoscopy was performed without difficulty. The patient tolerated the procedurewell. The quality of the bowel preparation was good. Findings: The perianal and digital rectal examinations were normal. The cecum appeared normal. A 4 mm polyp was found in the descending colon. The polyp wassessile. The polyp was removed with a jumbo cold forceps. Resection andretrieval were complete. Internal hemorrhoids were found during retroflexion. The hemorrhoids were medium-sized. Electronically signed by Marci Gay M.D. Marci Gya MD 12/05/2017 9:43:06 AM Number of Addenda: 0 Note Initiated On: 12/05/2017 9:03 AM Procedure Code(s): --- Professional --- 82276, Colonoscopy, flexible; with biopsy, single or multiple Diagnosis Code(s): --- Professional --- Z12.11, Encounter for screening for malignant neoplasm of colon K64.8, Other hemorrhoids D12.4, Benign neoplasm of descending colon CPT copyright 2014 [employer]. All rights reserved. The codes documented in this report are preliminary and upon dry curer reviewmay be revised to meet current compliance requirements. Recognized by the [employer] for promoting quality in endoscopy Marci Gay MD ENDOSCOPY PROCEDURES Final Result from Last 3 Months or Most Recently Relevant to Health Maintenance Insurance [employer] OOS BLUE TRADITIONAL OOS BLUE TRADITIONAL OOS Advance Directives For more information, please contact: [phone] * Full Code (Latest Code Status on File) Date Activated Date Inactivated Comments 12/05/2017 8:10 AM 12/05/2017 12:32 PM Care Teams Chemistry Quality Control Technician Relationship Specialty Start Date End Date Antwan Dowd PA [address] [place] [address] PCP - General 12/05/17
--- OUTSIDE RECORDS SUMMARY | 2025-03-25 07:59 | XMS_ITS | Encounter Summary ---
Author Organization [facility] Address [address] [place] [place] [address] Care Team Providers Care Food Service Cashier Name Role Phone Unavailable Primary Care Provider Unavailabl e Encounter Details Date Type Department Care Team (Late st Contact Info) Description 02/03/2020 Lab Requisition [facility] Lab [address] 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 Gender Identity Not on file Sexual Orientation Not on file documented as of this encounter Plan of Treatment Not on file documented as of this encounter Procedures Procedure Name Priority Date/Time Associated Diagnosis Comments DERMATOPATHOLOGY Routine 02/02/2020 12:0 0 AM CDT documented in this encounter Results * DERMATOPATHOLOGY (02/02/2020 12:00 AM CDT) Case Report Dermatopathology Report Case: [id number] Authorizing Provider: Talia Gaviria DO Collected: 02/02/2020 12:00 AM Ordering Location: [facility] Received: 02/03/2020 11:38 AM Pathologist: Rakesh Joy MD Specimen: Skin, left dorsal MCP 0 4:24 PM CDT DERMATOPATHOLOGY LABORATORY Final Diagnosis Specimen A. 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 Jonathon Joy. These tests need not be, and therefore are not, approved by the [place] Food and Drug Administration. The tests are used for clinical purposes. Billing Codes Specimen Charges Stain Charges 83404 1 84931 1 0 4:24 PM CDT DERMATOPATHOLOGY LABORATORY Embedded Images 0 4:24 PM CDT DERMATOPATHOLOGY LABORATORY Pathology/Cytolog y TISSUE SPECIMEN FROM SKIN / Unknown 02/02/2020 02/03/2020 11:38 AM CDT us Talia Gaviria DO LAB - PATHOLOGY/CYTOLOGY ORDERABLES Final Result DERMATOPATHOLOGY LABORATORY [facility] - Department of Dermatology Assistant Grocery Store Manager [place]/[address] [phone] documented in this encounter Visit Diagnoses Not on filedocumented in this encounter
--- OUTSIDE RECORDS SUMMARY | 2025-03-25 07:59 | XMS_ITS | Encounter Summary ---
Author Organization [employer] Address [address] [place] [address] Care Team Providers Care Wire Stripper Name Role Phone Unavailable Primary Care Provider Unavailabl e Encounter Details Date Type Department Care Team (Late st Contact Info) Description 04/10/2017 Lab Requisition [facility] Laboratory Services [address] [place] [address] [place] [address] Fabiano Hagan MD [address] [facility] [address] [place] [address] Social History Tobacco Use Types Packs/Day Years Used Date Smoking Tobacco: Never Assessed Sex and Gender Information Value Date Recorded Sex Assigned at Not on file Legal Sex Male 5:49 AM RECORDER OF DEEDS Gender Identity Not on file Sexual Orientation [...] - 4.9 mcg/dL 04/11/2017 11:09 PM CDT [facility] Comment: ADDITIONAL INFORMATION Testing performed by Inductively Coupled Plasma-Mass Spectrometry (ICP-MS). This test was developed and its performance characteristics determined by [facility] in a manner consistent with CLIA requirements. This test has not been cleared or approved by the U.S. Food and Drug Administration. ZINC PROTOPORPHYRIN 32 <100 mcg/dL 04/11/2017 11:09 PM CDT [facility] Comment: ADDITIONAL INFORMATION All measurements assume hematocrit of 42% and are made in mcg/dL per OSHA requirements. This test has been modified from the financial representative's instructions. Its performance characteristics were determined by [facility] in a manner consistent with CLIA requirements. This test has not been cleared or approved by the U.S. Food and Drug Administration. VENOUS/CAPILLARY Venous 04/11/20 11:09 PM CDT [facility] [address] [place] [address] 04/11/2017 11:09 PM CDT [facility] 04/11/2017 11:09 PM CDT [facility] 04/11/2017 11:09 PM CDT [facility] ZIP CODE [id number] 04/11/2017 11:09 PM CDT [facility] 04/11/2017 11:09 PM CDT [facility] HOME PHONE [phone] 04/11/2017 11:09 PM CDT [facility] RACE 04/11/2017 11:09 PM CDT [facility] ETHNICITY Non 04/11/2017 11:09 PM CDT [facility] OCCUPATION n/a 04/11/2017 11:09 PM CDT [facility] EMPLOYER n/a 04/11/2017 11:09 PM CDT [facility] GUARDIAN FIRST NAME Unknown 04/11/2017 11:09 PM CDT [facility] GUARDIAN LAST NAME Unknown 2016 11:09 PM CDT [facility] PROVIDER NAME [employer] 04/11/2017 11:09 PM CDT [facility] PROVIDER ADDRESS [address], [address] 04/11/2017 11:09 PM CDT [facility] 04/11/2017 11:09 PM CDT [facility] 04/11/2017 11:09 PM CDT [facility] PROVIDER ZIP CODE [id number] [phone] 11:09 PM CDT [facility] PROVIDER PHONE [phone] 04/11/20 17 11:09 PM CDT [facility] SUBMITTING LAB PHONE [phone] 04/11/2017 11:09 PM CDT [facility] Comment: Test Performed by: [place] [address] Blood Collection / Unknown 04/10/2017 2:46 PM CDT 04/10/2017 9:02 PM CDT us Fabiano Hagan MD CHEMISTRY ORDERABLES Final Result [facility] documented in this encounter Visit Diagnoses Not on filedocumented in this encounter
--- OUTSIDE RECORDS SUMMARY | 2025-03-25 07:59 | XMS_ITS | Encounter Summary ---
Author Organization [facility] Address [address] [place] [address] Care Team Providers Care Director Of Business Systems Name Role Phone Unavailable Primary Care Provider Unavailabl e Encounter Details Date Type Department Care Team (Late st Contact Info) Description 11/29/[address] 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 ADDITIONAL INFORMATION Testing performed by [facility]. ZINC PROTOPORPHYRIN 36 <100 mcg/dL 12/04/2015 1:55 AM CDT [facility] VENOUS/CAPILLARY VENOUS 12/04/2015 1:55 AM CDT [facility] 12/04/2015 1:55 AM CDT [facility] [place] 12/04/2015 1:55 AM CDT [facility] ZIP CODE [id number] 12/04/2015 1:55 AM CDT [facility] RACE UNKNOWN/RE FUSED 12/04/2015 1:55 AM CDT [facility] Comment: Test Performed by: [place] [address] Rn Clinical Quality: Ailyn Milian, Ph.D. Blood specimen (specimen) 11/29/2015 2:00 PM CDT 11/29/2015 9:33 PM CDT External Provider [facility] CHEMISTRY ORDERABLES Fin al Result [facility] documented in this encounter Visit Diagnoses Not on filedocumented in this encounter
--- OUTSIDE RECORDS SUMMARY | 2025-03-25 07:59 | XMS_ITS | Clinical Summary ---
Author Organization [facility] Address [address] [place] [address] Phone Care Team Providers Care Topology Teacher Name Role Phone Unavailable Primary Care Provider Unavailabl e Encounters Date Type Department Care Team Description 02/23/2025 External Device Data [facility] ABSTRACTION Provider, Abstract from Last 3 Months Social History Tobacco Use Types Packs/Day Years Used Date Smoking Tobacco: Never Assessed Sex and Gender Information Value Date Recorded Sex Assigned at Not on file Legal Sex Male 5:49 AM AUTO DETAILER Gender Identity Not on file Sexual Orientation [...] - Risk 60-74 years 1-dose series) 2023 COVID-19 Vaccine (2 - season) 2024 INFLUENZA VACCINE (#1) 2025 07/11/2014
--- OUTSIDE RECORDS SUMMARY | 2025-03-25 07:59 | XMS_ITS | Clinical Summary ---
Author Organization [facility] Address [facility] [place] [address] Care Team Providers Care Customer Services Manager Name Role Phone Antwan Dowd Primary Care Provider [phone] Medications lisinopril (PRINIVIL) 10 MG tablet Take 1 tablet (10 mg total) by mouth daily. Active pantoprazole EC (PROTONIX) 40 MG tabletIndicatio ns:Dysphagia, unspecified type,Erosive gastritis,Duode nitis Take 1 tablet (40 mg total) by mouth daily. 90 tablet 1 Active Na sulfate-K sulfate-Mg sulfate (SUPREP BOWEL PREP KIT) 17.5-3.13-1.6 GM/177ML SolutionIndicat ions:Screening for colon cancer Take 177 mLs by mouth every 12 (twelve) hours. Per GI instructions 354 mL Active Active Problems Problem Noted Date Diagnosed Date Dysphagia, unspecified type 12/10/2024 Erosive gastritis 12/10/2024 Duodenitis 12/10/2024 Resolved Problems Problem Noted Date Diagnosed Date Resolved Date Screening for colon cancer 12/10/2024 0 12/13/2024 Encounters Date Type Department Care Team Description 02/17/[address] [facility] One Day Services [address] [place] [address] Jen Cui resource analyst 01/31/2025 Telephone [facility] - [address], [address] [place] [address] Jacky Gardiner MD Prior Authorization (Colonoscopy 39101/EGD [id number]) from Last 3 Months Social History Tobacco Use Types Packs/Day Years Used Date Smoking Tobacco: Every Day Cigarettes Smokeless Tobacco: Current Tobacco Cessation:Ready to Q uit: No; Counseling Given: Yes Alcohol Use Standard Drinks/Week Comments Yes 0 (1 standard drink = 0.6 oz pur e alcohol) PHQ-2 Answer Date Recorded Patient Health Questionnaire-2 Score 0 12/10/2024 Sex and Gender Information Value Date Recorded Sex Assigned at Not on file 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 Gender Identity Not on file Sexual Orientation Not on file Last Filed Vital Signs Vital Sign Reading Time Taken Comments Blood Pressure 135/66 12/10/2024 8:15 AM CDT Pulse 73 12/10/2024 8:15 AM CDT Temperature 37.4 C (99.4 F) 12/10/2024 8:15 AM CDT Respiratory Rate 18 12/10/2024 8:15 AM CDT Oxygen Saturation 98% 12/10/2024 8:15 AM CDT Inhaled Oxygen Concentration - - Weight 83.5 kg (184 lb) 12/10/2024 8:15 AM CDT Height 182.9 cm (6') 12/10/2024 8:15 AM CDT Body Mass Index 24.95 12/10/2024 8:15 AM CDT Plan of Treatment Health Maintenance Due Date Last Done Comments Colorectal Cancer Screening Colonoscopy (10 Years) 1963 Annual Physical 1966 Hepatitis C 1981 DTaP, Tdap and Td Vaccines ( 1 - Tdap) 1982 Pneumococcal Vaccine: 50+ Ye ars (1 of 2 - PCV) 1982 Zoster Vaccines (1 of 2) 2013 COVID-19 Vaccine (2 - 2023-2 5 season) 2024 06/24/2021 RSV Immunization or 60+ Years (1 - 1-dose 75+ series) 2038 PHQ-2 (Physician [place]) Completed 12/10/2024 Meningococcal B Vaccine Aged Out No l onger eligible based on patient's age to complete this topic Meningococcal Vaccine Aged Out No osiris jessie eligible based on patient's age to complete this topic RSV Immunizations Under 20 Months Aged Out No longer eligible based on patient's age to complete this topic Insurance GENERIC - [employer] Care Teams Customer Services Manager Relationship Specialty Start Date End Date Antwan Dowd PA PCP - General PHYSICIAN SEWER PIPE SORTER 09/25/22
--- OUTSIDE RECORDS SUMMARY | 2025-03-25 07:59 | XMS_ITS | Clinical Summary ---
Author Organization [facility] Address [address] [place] [address] Care Team Providers Care Pie Maker Machine Name Role Phone Unavailable Primary Care Provider Unavailabl e Source Comments [facility],non-owned Affiliates and Associated Physician Practices is amultiple site organization consisting of ambulatory clinics and hospital sitesin [place], [place], [place] and [place]. This disclosure is being madepursuant to the Care Everywhere program and may not contain all information available regarding this patient. 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 Gender Identity Not on file Sexual Orientation [...] VACCINE (1 of 2) 2013 COVID-19 VACCINE (1 - 2023-2 5 season) 2024 DEPRESSION SCREENING 08/11/2024 INFLUENZA VACCINE (#1) 2025 Respiratory Syncytial Virus (RSV) Vaccine Pt: or [...] to complete this topic MENINGOCOCCAL (Group B) VACC INE SHARED DECISION-MAKING Aged Out No longer eligibl e based on patient's age to complete this topic MENINGOCOCCAL GROUPS A/C/Y/W VACCINE Aged Out No longer eligible b ased on patient's age to complete this topic Insurance [facility] SELF PAY NO INSURANCE Member Subscriber Plan / Payer (Ef fective for All Dates) Name:Hannah Foley Member ID:Not on file Relation to Subscriber:Not on file Name:HANNAH FOLEY Subscriber ID:Not on file (Home) Address: [address] [place] [address] [place] [address] Payer ID:Not on file Group ID:Not on file Type:Self Pay Address: [facility]
[2025-03-25 08:33] LABS: Hematocrit 45.0 % (42.0-52.0); Hemoglobin 14.8 g/dL (14.0-18.0); Mean Corpuscular HGB Conc 32.9 g/dl (32-36); Mean Corpuscular Hemoglobin 31.3 pg (26-34); Mean Corpuscular Volume 95.1 fl (80-100); Red Blood Count 4.73 M/mm3 (4.6-6.20); White Blood Count 8.7 K/mm3 (4.5-10.0)
[2025-03-25 08:34] LABS: Immature Granulocyte Percent A 0.2 % (0-0.5); Lymphocytes Absolute Auto 2.27 K/mm3 (0.9-3.2); Nucleated Red Blood Cells Absolute Auto 0.000 K/mm3 (0.0-0.012); Nucleated Red Blood Cells Perc 0.0 % (0.0-0.2); Platelet Count Result 247 k/mm3 (150-375)
[2025-03-25 09:01] LABS: Alanine Aminotransferase 17 U/L (6-50); Albumin Level 4.4 g/dL (3.5-5.1); Alkaline Phosphatase 71 U/L (38-126); Anion Gap 6 mmol/L (4-12); Aspartate Amino Transferase 26 U/L (17-59); Bilirubin,Total 0.6 mg/dL (0.2-1.3); Blood Urea Nitrogen 15 mg/dL (9-20); Calcium 9.5 mg/dL (8.4-10.2); Carbon Dioxide 28 mmol/L (22-30); Chloride 102 mmol/L (98-107); Estimated Glomerular Filt Rate > 60; Glucose 107 mg/dL (65-110); Potassium 4.4 mmol/L (3.4-5.0); Sodium 136 mmol/L (137-145); Total Protein 7.5 g/dL (6.3-8.2)
[2025-03-25 09:41] LABS: HIV 1/2 Ab P24 Ag Result Negative (Negative)
[2025-03-25 10:58] LABS: Hepatitis B Surface Antigen Negative (Negative)
[2025-03-25 11:15] LABS: Hepatitis B Surface Anti Res Negative
[2025-03-26 07:09] LABS: Hep B Core Ab, Total Negative (Negative)
== END 2025-03-25 07:53 | disposition home or self-care (01) ==
PROVIDERS: PCP Physician Assistant
DX: Z79.899 Other long term (current) drug therapy (principal)
CPT/HCPCS: 36415; 80053; 82248; 85025; 86480; 86703; 86704; 86706; 86803; 87340; G0432